=== PATIENT | female | born 1970 | race Caucasian/White ===

== ENCOUNTER 2018-05-28 06:05 | Inpatient (IN) | payer OTHER ==
[2018-05-28] MEDS ORDERED: TERBUTALINE 1 MG/ML VIAL SQ PRN (06:24)
[2018-05-28] MEDS ORDERED: METHYLERGONOVINE 0.2 MG/ML 1 ML AMP IM PRN (06:24)
[2018-05-28] MEDS ORDERED: LIDOCAINE 0.5% (PF) 5 MG/ML (50 ML SDV) SQ PRN (06:24)
[2018-05-28] MEDS ORDERED: PENICILLIN G POTASSIUM 5,000,000 UNIT in DEXTROSE 5% IN WATER 100 ML IVPB STA ×2 (06:24)
[2018-05-28] MEDS ORDERED: CARBOPROST TROMETHAMINE 250 MCG/ML 1 ML AMP IM PRN (06:24)
[2018-05-28] MEDS ORDERED: OXYTOCIN 10 UNIT/ML 1 ML VIAL IM PRN (06:24)
[2018-05-28] MEDS ORDERED: LACTATED RINGERS 1,000 ML IV SCH (06:30)
[2018-05-28] MEDS: LACTATED RINGERS 1,000 ML IV SCH (06:32)
[2018-05-28 06:44] LABS: Basophils % (A) 0 %; Eosinophils # (A) 0.1 k/uL (0-0.7); Eosinophils % (A) 1 %; HCT 38.7 % (34.0-46.0); HGB 12.1 gm/dL (11.4-16.0); Lymphocytes # (A) 1.8 k/uL (1.0-4.8); Lymphocytes % (A) 19 %; MCH 29.2 pg (25.0-35.0); MCHC 31.4 g/dL (31.0-37.0); Mean Platelet Volume 7.5; Monocytes # (A) 0.4 k/uL (0-1.0); Monocytes % (A) 4 %; Neutrophils # (A) 7.3 k/uL (1.3-7.7); Neutrophils % (A) 75 %; Platelet Count 263 k/uL (150-450); RBC 4.15 m/uL (3.80-5.40); RDW 13.9 % (11.5-15.5); WBC 9.8 k/uL (3.8-10.6)
--- NOTE | 2018-05-28 07:20 | P.HPOB ---
History of Present Illness H&P Date: 05/28/18 Chief Complaint: Patient presents with strong regular uterine contractions This is a 47-year-old white female 2 para 0010 EDC 05/31/2018 at 39-4/7 weeks' gestation. Patient presented in spontaneous labor, contractions started at home at 0300 hrs. Upon presentation to triage she was completely dilated. She denied fluid leakage or vaginal bleeding. Past medical history is significant for diabetes, history of blood clot in the left leg postsurgical 2007. Past surgical history D&C 2016, gastric bypass surgery 2017, excess skin removal of the abdomen size and arms 2009, hysteroscopy 2, wisdom teeth extracted. Current medications baby aspirin daily, heparin 75,000 units twice daily, last received at 10 AM yesterday morning. ALLERGIES none known. Family history significant for hypertension and diabetes. Social history patient is a former tobacco smoker, she is , she denies alcohol or drug use. Obstetric history is significant for blood type A positive, rubella status immune. VDRL testing, hepatitis B surface antigen, HIV testing, gonorrhea and chlamydia cultures, all positive. This is significant for twin in the first trimester with 1 demise. One-hour Glucola 67. Repeat 74. Positive group B strep cultures. On exam this is a white female who is 5 foot 4 inches, 240 pounds, blood pressure 131/80 on admission. Gen. physical exam reveals 3+ lower extremity edema, normal reflexes. Cervix is dilated to 10 on admission, bulging membranes , vertex presentation. Artificial amniorrhexis reveals clear fluid. Station + 1. heart rate consistent with reactive NST. Impression: 39-4/7 weeks intrauterine , advanced maternal age, history of blood clot on heparin, positive group B strep cultures. Plan: Continue close maternal and surveillance. Anticipate normal spontaneous vaginal delivery. Review of Systems Constitutional: Reports as per HPI Past Medical History Past Medical History: Deep Vein Thrombosis (DVT) History of Any Multi-Drug Resistant Organisms: None Reported Past Surgical History: Bariatric Surgery Additional Past Surgical History / Comment(s): skin removal Past Psychological History: No Psychological Hx Reported Smoking Status: Former smoker Past Alcohol Use History: None Reported Past Drug Use History: None Reported Medications and Allergies Home Medications Medication Instructions Recorded Confirmed Type Aspirin 162 mg PO DAILY 11/29/17 05/28/18 History Calcium Carbonate/Vitamin D3 1 tab PO DAILY 11/29/17 05/28/18 History [Calcium 600-Vit D3 400 Caplet] Cephalexin [Keflex] 500 mg PO Q6HR #28 cap 11/29/17 05/28/18 Rx Cholecalciferol (Vitamin D3) 2,000 unit PO DAILY 11/29/17 05/28/18 History [Vitamin D3] Enoxaparin Sodium 40 mg SQ DAILY 11/29/17 05/28/18 History Ferrous Sulfate [Feosol] 325 mg PO DAILY 11/29/17 05/28/18 History Multivitamins, Thera [Multivitamin 2 tab PO DAILY 11/29/17 05/28/18 History (formulary)] Phytonadione [Vitamin K] 5 mg PO DAILY 11/29/17 05/28/18 History Mmb-Qhpb-Efuca Acid 1 cap PO DAILY 11/29/17 05/28/18 History [-U Capsule (formulary)] Vitamin A 8,000 unit PO DAILY 11/29/17 05/28/18 History Vitamin E 1,000 unit PO DAILY 11/29/17 05/28/18 History Allergies Allergy/AdvReac Type Severity Reaction Status Date / Time No Known Allergies Allergy Verified 05/28/18 06:23 Exam Intake and Output 05/27/18 05/28/18 05/28/18 22:59 06:59 14:59 Other: Weight 108.862 kg C exam under HPI please Results Result Diagrams: 05/28/18 06:34 Assessment and Plan Assessment: Active labor at 39-4/7 weeks' gestation Plan: Anticipate normal spontaneous vaginal delivery. Penicillin G administered. Time with Patient: Less than 30
--- NOTE | 2018-05-28 07:22 | P.PROBDLV ---
Vaginal Delivery Note - . Vaginal Delivery Note: This is a 47-year-old white female 2 para 0010 EDC 06/10/2018 at 39-4/7 weeks' gestation. Patient presented in active spontaneous labor. Patient has been on heparin 75,000 units twice a day, last received at 10 AM yesterday morning. She denied fluid leakage or vaginal bleeding. Please see dictated history and physical for details. Penicillin G was given 1. Artificial amniorrhexis revealed clear fluid. Internal scalp lead was applied. Patient had a difficult time with the second stage, writhing, unable to maintain proper position or focus. However, perineal body was prepped and draped and ultimately the 's head delivered occiput anterior. Infant restituted accordingly. There was no nuchal cord. Patient was officially delivered of a liveborn female infant at 0658 hours. Umbilical cord was doubly clamped and ligated, she was handed to waiting nurses for evaluation where scores of 9 and 9 at one and 5 minutes respectively were given. Placenta delivered spontaneously, it was inspected and noted to be small, otherwise intact with trivascular cord. There is terminal meconium. Placenta is sent to pathology. The uterus is then massaged. Inspection of the cervix, vagina, perineum, and periurethral areas revealed a small first-degree perineal laceration on the right labia, and the second on the left labia. Both were injected with lidocaine and repaired with a single wvvhfu-[id number]-ogmpn suture of 3-0 Vicryl. Total estimated blood loss 400 mL's. IV is positional and therefore Methergine was given IM 1 with good results. Total estimated blood loss 400 mL's. weighed 2910 g or 6 pounds 6.6 ounces. Patient and her are allowed to begin the bonding expense in the LDR.
[2018-05-28 07:47] VITALS: BMI 41.1
[2018-05-28 07:50] LABS: Partial Thromboplastin Time 22.7 sec (22.0-30.0); Prothrombin Time 9.6 sec (9.0-12.0)
[2018-05-28] MEDS ORDERED: ACETAMINOPHEN IV (For NPO) 1,000 MG in EMPTY BAG 1 BAG IVPB STA (08:11)
[2018-05-28] MEDS ORDERED: PENICILLIN G POTASSIUM 2,500,000 UNIT in DEXTROSE 5% IN WATER 100 ML IVPB SCH ×2 (10:25)
[2018-05-28] MEDS ORDERED: SIMETHICONE 80 MG CHEWABLE PO PRN (13:21)
[2018-05-28] MEDS ORDERED: LANOLIN CREAM 5 GM TUBE TOPICAL PRN (13:21)
[2018-05-28] MEDS ORDERED: WITCH HAZEL 1 EACH MED..PAD TOPICAL PRN (13:21)
[2018-05-28] MEDS ORDERED: BENZOCAINE/MENTHOL SPRAY 1 GM/SPRAY AEROSOL TOPICAL PRN (13:21)
[2018-05-28] MEDS ORDERED: diphenhydrAMINE 25 MG CAP PO PRN (13:21)
[2018-05-28] MEDS ORDERED: ZOLPIDEM 5 MG TAB PO PRN (13:21)
[2018-05-28] MEDS ORDERED: IBUPROFEN 600 MG TAB PO PRN (13:21)
[2018-05-28] MEDS ORDERED: diphenhydrAMINE 50 MG/ML 1 ML VIAL IVP PRN ×2 (13:21)
[2018-05-28] MEDS ORDERED: diphenhydrAMINE 50 MG CAP PO PRN (13:21)
[2018-05-28] MEDS ORDERED: HYDROCORTISONE 2.5% RECTAL CREAM 30 GM TUBE RECTAL PRN (13:21)
[2018-05-28] MEDS ORDERED: OXYTOCIN 20 UNITS/1000 ML NS 1,000 ML IV SCH (13:30)
[2018-05-28] MEDS: ENOXAPARIN 40 MG/0.4 ML SYRINGE SQ SCH (16:12)
[2018-05-28 16:44] VITALS: RESP 16
[2018-05-28] MEDS: ACETAMINOPHEN TAB 325 MG TAB PO PRN ×2 (16:53→21:34)
[2018-05-28] MEDS: SENNOSIDES-DOCUSATE SODIUM 1 EACH TAB PO SCH (21:34)
--- NOTE | 2018-05-29 07:37 | P.PN ---
Subjective Progress Note Date: 05/29/18 Principal diagnosis: day #1 Slept well. Diuresing well. No complaints of pain. Minimal to moderate lochia rubra, no large clots. Objective - Vital Signs Vital signs: Vital Signs Temp 98.1 F 05/29/18 00:00 Pulse 61 05/29/18 00:00 Resp 16 05/29/18 00:00 BP 95/50 05/29/18 00:00 Pulse Ox 98 05/28/18 16:00 Intake & Output 05/28/18 05/29/18 05/29/18 18:59 06:59 18:59 Intake Total 50 Balance 50 Intake: Oral 50 Other: # Voids 1 1 - Constitutional General appearance: Present: average body habitus, morbidly obese - EENT Eyes: Present: PERRLA ENT: Present: hearing grossly normal - Neck Neck: Present: normal ROM - Respiratory Respiratory: bilateral: CTA - Cardiovascular Rhythm: regular - Gastrointestinal General gastrointestinal: Present: normal bowel sounds - Genitourinary Genitourinary Comment(s): Fundus firm, midline, below the umbilicus, symmetric and nontender. - Integumentary Integumentary Comment(s): 2-3+ peripheral edema, improved over yesterday. No calf tenderness. Integumentary: Present: normal - Neurologic Neurologic: Present: CNII-XII intact - Labs CBC & Chem 7: 05/28/18 06:34 Assessment and Plan Assessment: day #1, doing well. Diuresing nicely. Plan: Continue care today, as needs an additional 24 hours for history of positive group B strep cultures. Continue care. Likely discharge home tomorrow. Time with Patient: Less than 30
[2018-05-29 08:37] LABS: Basophils % (A) 0 %; Eosinophils # (A) 0.1 k/uL (0-0.7); Eosinophils % (A) 1 %; HCT 31.3 % (34.0-46.0); HGB 10.2 gm/dL (11.4-16.0); Hypochromasia Slight; Lymphocytes # (A) 1.4 k/uL (1.0-4.8); Lymphocytes % (A) 14 %; MCH 31.3 pg (25.0-35.0); MCHC 32.6 g/dL (31.0-37.0); MCV 95.9 fL (80.0-100.0); Mean Platelet Volume 8.1; Monocytes # (A) 0.4 k/uL (0-1.0); Monocytes % (A) 5 %; Neutrophils # (A) 7.8 k/uL (1.3-7.7); Neutrophils % (A) 80 %; Platelet Count 208 k/uL (150-450); RBC 3.27 m/uL (3.80-5.40); RDW 14.1 % (11.5-15.5); WBC 9.8 k/uL (3.8-10.6)
[2018-05-29] MEDS: SENNOSIDES-DOCUSATE SODIUM 1 EACH TAB PO SCH ×2 (09:17→19:37)
[2018-05-29] MEDS: LACTATED RINGERS 1,000 ML IV SCH (09:17)
[2018-05-29] MEDS: ENOXAPARIN 40 MG/0.4 ML SYRINGE SQ SCH (10:16)
[2018-05-29] MEDS: ACETAMINOPHEN TAB 325 MG TAB PO PRN (19:37)
--- NOTE | 2018-05-30 08:11 | P.DS ---
Providers Date of admission: 05/28/18 06:05 Expected date of discharge: 05/30/18 Attending physician: Rahel Ardon Primary care physician: Tye Felder DO Hospital Course: This is a 47-year-old white female 2 para 0010 EDC 06/10/2018 at 39-4/7 weeks' gestation. Patient was scheduled for induction, however presented in active labor. Her is remarkable for advanced maternal age, positive group B strep cultures, history of blood clot in the past, on heparin twice daily. She is being co-managed with high risk. Cerclage was placed earlier in the , and has been removed. Please see my dictated history and physical for details. Patient went on to quickly deliver a liveborn female infant with scores of 9 and 9 at one and 5 minutes respectively. weighed 6 lbs. 6 oz. or 2910 g. Estimated blood loss of 400 mL, with additional 200 mL of clot passed after delivery. There was a small first-degree perineal laceration on both of the labia minora, both repaired with single [id number] sutures. Please see dictated delivery note for details. The patient has been transitioned back to Lovenox 40 mg daily. This morning she is doing well, she is voiding, ambulating and passing flatus without difficulty. Extremities reveal 2+ edema, reflexes are normal. Fundus is firm and in the midline, symmetric and 18 week size. Extremities are negative. Breasts are not engorged. Breast-feeding is going well. She has requested and I have written for her prescription for a double electric breast pump. Patient will follow-up with me in the office in 6 weeks. She will use over-the- counter Tylenol if needed for pain. I have reminded her no intercourse, tampons or douching. She will continue the Lovenox 40 mg daily. She will call with any fevers shakes or chills, foul smelling or copious lochia, with the passage of large blood clots, with any pain not alleviated by over the counter products, with any issues of redness tenderness or enlargement of the lower extremities, or indeed with any concerns. Patient Condition at Discharge: Good Plan - Discharge Summary Discharge Rx Participant: No New Discharge Prescriptions: No Action Vitamin E 1,000 unit PO DAILY Vitamin A 8,000 unit PO DAILY Phytonadione [Vitamin K] 5 mg PO DAILY Ferrous Sulfate [Feosol] 325 mg PO DAILY Calcium Carbonate/Vitamin D3 [Calcium 600-Vit D3 400 Caplet] 1 tab PO DAILY Ddp-Ucje-Mqbxc Acid [-U Capsule (formulary)] 1 cap PO DAILY Multivitamins, Thera [Multivitamin (formulary)] 2 tab PO DAILY Enoxaparin Sodium 40 mg SQ DAILY Aspirin 162 mg PO DAILY Cholecalciferol (Vitamin D3) [Vitamin D3] 2,000 unit PO DAILY Cephalexin [Keflex] 500 mg PO Q6HR #28 cap Discharge Medication List Aspirin 162 mg PO DAILY 11/29/17 [History] Calcium Carbonate/Vitamin D3 [Calcium 600-Vit D3 400 Caplet] 1 tab PO DAILY 05/09 [History] Cephalexin [Keflex] 500 mg PO Q6HR #28 cap 11/29/17 [Rx] Cholecalciferol (Vitamin D3) [Vitamin D3] 2,000 unit PO DAILY 11/29/17 [History] Enoxaparin Sodium 40 mg SQ DAILY 11/29/17 [History] Ferrous Sulfate [Feosol] 325 mg PO DAILY 11/29/17 [History] Multivitamins, Thera [Multivitamin (formulary)] 2 tab PO DAILY 11/29/17 [History ] Phytonadione [Vitamin K] 5 mg PO DAILY 11/29/17 [History] Bbs-Sgig-Fswtt Acid [-U Capsule (formulary)] 1 cap PO DAILY 05/09 [History] Vitamin A 8,000 unit PO DAILY 11/29/17 [History] Vitamin E 1,000 unit PO DAILY 11/29/17 [History] Follow up Appointment(s)/Referral(s): Rahel Ardon MD [STAFF PHYSICIAN] - 6 Weeks Discharge Disposition: HOME SELF-CARE
[2018-05-30] MEDS: SENNOSIDES-DOCUSATE SODIUM 1 EACH TAB PO SCH (09:01)
[2018-05-30] MEDS: ENOXAPARIN 40 MG/0.4 ML SYRINGE SQ SCH (09:01)
[2018-05-30 10:26] VITALS: BP 107/70; PULSE 56; TEMP 98
== END 2018-05-30 12:25 | disposition home or self-care (01) | DRG 807 ==
LOC: 4FBP 06:05
PROVIDERS: ADMIT Obstetrics & Gynecology; ATTEND Obstetrics & Gynecology
PROC: 10E0XZZ Delivery of Products of Conception, External Approach (ICD-10-PCS; principal; 2018-05-28)
PROC: 0KQM0ZZ Repair Perineum Muscle, Open Approach (ICD-10-PCS; 2018-05-28)
PROC: 0HQ9XZZ Repair Perineum Skin, External Approach (ICD-10-PCS; 2018-05-28)
DX: O77.0 Labor and delivery complicated by meconium in amniotic fluid (principal); O99.844 Bariatric surgery status complicating childbirth; O70.0 First degree perineal laceration during delivery; O70.1 Second degree perineal laceration during delivery; O99.824 Streptococcus B carrier state complicating childbirth; Z37.0 Single live birth; Z3A.39 39 weeks gestation of pregnancy; Z79.82 Long term (current) use of aspirin; Z79.899 Other long term (current) drug therapy; Z87.891 Personal history of nicotine dependence; Z86.39 Personal history of other endocrine, nutritional and metabolic disease; Z86.718 Personal history of other venous thrombosis and embolism; Z82.49 Family history of ischemic heart disease and other diseases of the circulatory system; Z83.3 Family history of diabetes mellitus
CPT/HCPCS: 85025; 85610; 85730; 86850; 86900; 86901; 88307

== ENCOUNTER 2019-08-16 23:01 | Emergency (ER) | payer OTHER ==
--- NOTE | 2019-08-17 00:05 | US ---
EXAMINATION TYPE: US venous doppler duplex LE LT DATE OF EXAM: 08/16/2019 11:54 PM COMPARISON: NONE CLINICAL HISTORY: Leg pain/swelling recent procedure. Pain and swelling. SIDE PERFORMED: Left TECHNIQUE: The lower extremity deep venous system is examined utilizing real time linear array sonog kae with graded compression, doppler sonography and color-flow sonography. VESSELS IMAGED: External Iliac Vein (EIV) Common Femoral Vein Deep Femoral Vein Greater Saphenous Vein * Femoral Vein Popliteal Vein Small Saphenous Vein * Proximal Calf Veins (* superficial vessels) Left Leg: Negative for DVT IMPRESSION: No evidence of deep venous thrombosis in the left leg.
--- NOTE | 2019-08-17 00:18 | ED ---
Extremity Problem HPI - General Chief complaint: Extremity Problem,Nontraumatic Stated complaint: left leg pain Time Seen by Provider: 08/16/19 23:19 Source: patient, family Mode of arrival: ambulatory Limitations: no limitations - History of Present Illness Initial comments: 48-year-old female patient presents to the emergency department today for evalu ation of swelling and tenderness to her left calf. Patient recently had a venous ablation and was told that she may develop DVT as a complication. Patient states the last 2 days she has been having an area of pain and swelling to the left proximal medial calf. She denies any numbness or tingling to the leg. Denies fever or chills. Denies any known injury. She denies use of any anticoagulants or antiplatelet medications. She does have history of DVT about 10 years ago after a cosmetic surgery to her leg. - Related Data Home Medications Medication Instructions Recorded Confirmed Aspirin 162 mg PO DAILY 11/29/17 05/28/18 Calcium Carbonate/Vitamin D3 1 tab PO DAILY 11/29/17 05/28/18 [Calcium 600-Vit D3 400 Caplet] Cholecalciferol (Vitamin D3) 2,000 unit PO DAILY 11/29/17 05/28/18 [Vitamin D3] Enoxaparin Sodium 40 mg SQ DAILY 11/29/17 05/28/18 Ferrous Sulfate [Feosol] 325 mg PO DAILY 11/29/17 05/28/18 Multivitamins, Thera [Multivitamin 2 tab PO DAILY 11/29/17 05/28/18 (formulary)] Phytonadione [Vitamin K] 5 mg PO DAILY 11/29/17 05/28/18 Csv-Qbcn-Fnxzm Acid 1 cap PO DAILY 11/29/17 05/28/18 [-U Capsule (formulary)] Vitamin A 8,000 unit PO DAILY 11/29/17 05/28/18 Vitamin E 1,000 unit PO DAILY 11/29/17 05/28/18 Previous Rx's Medication Instructions Recorded Cephalexin [Keflex] 500 mg PO Q6HR #28 cap 11/29/17 Allergies Allergy/AdvReac Type Severity Reaction Status Date / Time No Known Allergies Allergy Verified 08/16/19 23:15 Review of Systems ROS Statement: Those systems with pertinent positive or pertinent negative responses have been documented in the HPI. ROS Other: All systems not noted in ROS Statement are negative. Past Medical History Past Medical History: Deep Vein Thrombosis (DVT) History of Any Multi-Drug Resistant Organisms: None Reported Past Surgical History: Bariatric Surgery Additional Past Surgical History / Comment(s): skin removal, metro veinn thermal ablasion Past Anesthesia/Blood Transfusion Reactions: No Reported Reaction Past Psychological History: No Psychological Hx Reported Smoking Status: Former smoker Past Alcohol Use History: None Reported Past Drug Use History: None Reported - Past Family History Mother Family Medical History: Unable to Obtain General Exam Limitations: no limitations General appearance: alert, in no apparent distress, other (This is a well- developed, well-nourished adult female patient in no acute distress. Vital signs upon presentation are temperature 98.1F, pulse 60, respirations 20, blood pressure 142/85, pulse ox 99% on room air.) Respiratory exam: Present: normal lung sounds bilaterally. Absent: respiratory distress, wheezes, rales, rhonchi, stridor Cardiovascular Exam: Present: regular rate, normal rhythm, normal heart sounds. Absent: systolic murmur, diastolic murmur, rubs, gallop, clicks Extremities exam: Present: full ROM, tenderness (Left medial proximal calf.), normal capillary refill, other (Skin to the lower extremities is pink, warm, dry. Cap refills less than 3 seconds.). Absent: pedal edema, joint swelling, calf tenderness Neurological exam: Present: alert, oriented X3, CN II-XII intact Psychiatric exam: Present: normal affect, normal mood Skin exam: Present: warm, dry, intact, normal color. Absent: rash Course Vital Signs 08/16/19 08/17/19 23:11 00:24 Temperature 98.1 F 98 F Pulse Rate 60 75 Respiratory 20 18 Rate Blood Pressure 142/85 138/81 O2 Sat by Pulse 99 100 Oximetry Medical Decision Making - Medical Decision Making 48-year-old female patient presented to the emergency department today for evaluation of left calf pain and tenderness. Physical examination reveals generalized swelling to the lower extremities. Ultrasound was obtained rule out DVT, no evidence for DVT was noted. Did discuss findings results with the patient. She is instructed follow with her primary care physician for recheck in 1-2 days. She is instructed to repeat ultrasound performed of symptoms persist. Return parameters were discussed in detail. She verbalizes understanding and agrees with this plan. - Radiology Data Radiology results: report reviewed No evidence for DVT Disposition Clinical Impression: Leg pain Disposition: HOME SELF-CARE Condition: Good Instructions (If sedation given, give patient instructions): Leg Pain (ED) Additional Instructions: Rest, elevate the leg. Follow-up with primary care physician for recheck in 1-2 days. Return to the emergency department immediately for any new, worsening, or concerning symptoms. Is patient prescribed a controlled substance at d/c from ED?: No Referrals: None,Stated [Primary Care Provider] - 1-2 days Time of Disposition: 00:18
[2019-08-17 00:29] VITALS: BP 138/81; PULSE 75; RESP 18; TEMP 98
== END 2019-08-17 00:24 | disposition home or self-care (01) ==
LOC: EC 23:01
DX: M79.662 Pain in left lower leg (principal); M79.89 Other specified soft tissue disorders; Z87.891 Personal history of nicotine dependence; Z79.82 Long term (current) use of aspirin; Z86.718 Personal history of other venous thrombosis and embolism; Z98.890 Other specified postprocedural states
CPT/HCPCS: 99283

== ENCOUNTER → 2019-09-02 | Outpatient (CLI) | payer OTHER ==
[2019-09-03 00:16] LABS: Luteinizing Hormone 24.1 mIU/mL
[2019-09-03 00:17] LABS: Follicle Stimulating Hormone 23.1 mIU/mL
[2019-09-03 00:20] LABS: HCG,Quantitative Serum <2.0 mIU/mL
== END | disposition home or self-care (01) ==
LOC: LABWHC1 16:02
PROVIDERS: ATTEND Obstetrics & Gynecology Reproductive Endocrinology
DX: N97.9 Female infertility, unspecified (principal)
CPT/HCPCS: 36415; 82672; 83001; 83002; 84144; 84702

== ENCOUNTER → 2019-10-09 | Outpatient (CLI) | payer OTHER ==
--- NOTE | 2019-10-09 10:05 | MM ---
Reason for exam: screening (asymptomatic). Last mammogram was performed 2 years and 10 months ago. History: Patient had first child at age 48. Family history of breast cancer in mother and breast cancer in maternal grandmother. Taking other hormone. Physical Findings: A clinical breast exam by your physician is recommended on an annual basis and results should be correlated with mammographic findings. MG 3D Screening Mammo W/Cad Bilateral CC, MLO, and XCCL view(s) were taken. Prior study comparison: December 12, 2016, mammogram. October 14, 2014, mammogram. The breast tissue is heterogeneously dense. This may lower the sensitivity of mammography. There are benign appearing round calcifications bilaterally. There is chronic nodularity bilaterally, axilla benign lymph nodes. There is no new dominant lesion. ASSESSMENT: Benign, BI-RAD 2 RECOMMENDATION: Routine screening mammogram of both breasts in 1 year.
== END | disposition home or self-care (01) ==
LOC: RADMAMWWP 07:27
PROVIDERS: ATTEND Obstetrics & Gynecology
DX: Z12.31 Encounter for screening mammogram for malignant neoplasm of breast (principal); Z80.3 Family history of malignant neoplasm of breast
CPT/HCPCS: 77063; 77067

== ENCOUNTER → 2019-11-21 | Outpatient (CLI) | payer OTHER ==
--- NOTE | 2019-11-22 11:35 | ECHOF ---
Referral Reason:R00.1 bradycardia, unspecified MEASUREMENTS -------- HEIGHT: 162.6 cm WEIGHT: 98.4 kg BP: 120/80 RVIDd: 3.3 cm (< 3.3) IVSd: 1.2 cm (0.6 - 1.1) LVIDd: 4.6 cm (3.9 - 5.3) LVPWd: 1.1 cm (0.6 - 1.1) IVSs: 1.7 cm LVIDs: 3.1 cm LVPWs: 2.0 cm LA Diam: 3.7 cm (2.7 - 3.8) LAESV Index (A-L): 25.21 ml/m Ao Diam: 3.3 cm (2.0 - 3.7) AV Cusp: 2.5 cm (1.5 - 2.6) MV EXCURSION: 12.495 mm (> 18.000) MV EF SLOPE: 74 mm/s (70 - 150) EPSS: 0.8 cm MV E Oscar: 1.05 m/s MV DecT: 224 ms MV A Oscar: 0.74 m/s MV E/A Ratio: 1.43 RAP: 5.00 mmHg RVSP: 21.00 mmHg FINDINGS -------- Sinus rhythm. This was a technically adequate study. The left ventricular size is normal. There is borderline concentric left ventricular hypertrophy. Overall left ventricular systolic function is normal with, an EF between 60 - 65 %. The right ventricle is mildly enlarged. Normal LA size by volume 22+/-6 ml/m2. The right atrium is normal in size. Interatrial and interventricular septum intact. The aortic valve is trileaflet and appears structurally normal. The mitral valve is normal. Mild tricuspid regurgitation present. Right ventricular systolic pressure is normal at < 35 mmHg. There is no pulmonic regurgitation present. The aortic root size is normal. IVC Not well visulized. There is no pericardial effusion. CONCLUSIONS -------- 1. Sinus rhythm. 2. This was a technically adequate study. 3. The left ventricular size is normal. 4. There is borderline concentric left ventricular hypertrophy. 5. Overall left ventricular systolic function is normal with, an EF between 60 - 65 %. 6. The right ventricle is mildly enlarged. 7. Normal LA size by volume 22+/-6 ml/m2. 8. The right atrium is normal in size. 9. Interatrial and interventricular septum intact. 10. The aortic valve is trileaflet and appears structurally normal. 11. The mitral valve is normal. 12. Mild tricuspid regurgitation present. 13. Right ventricular systolic pressure is normal at < 35 mmHg. 14. There is no pulmonic regurgitation present. 15. The aortic root size is normal. 16. IVC Not well visulized. 17. There is no pericardial effusion. CYBER OPERATOR: Greta Willoughby RDCS
== END | disposition home or self-care (01) ==
LOC: RADECHMAIN 11:19
PROVIDERS: ATTEND Family Medicine
DX: I07.1 Rheumatic tricuspid insufficiency (principal)
CPT/HCPCS: 93306

== ENCOUNTER → 2020-02-03 | Outpatient (CLI) | payer OTHER ==
[2020-02-03 14:11] LABS: Anisocytosis Slight; HCT 37.3 % (34.0-46.0); HGB 11.5 gm/dL (11.4-16.0); Hypochromasia Slight; MCH 26.5 pg (25.0-35.0); MCHC 30.8 g/dL (31.0-37.0); MCV 86.1 fL (80.0-100.0); Platelet Count 226 k/uL (150-450); RBC 4.33 m/uL (3.80-5.40); RDW 16.6 % (11.5-15.5); WBC 7.1 k/uL (3.8-10.6)
[2020-02-03 20:39] LABS: HIV 2 AB Non-Reactive (Non-Reactive); HIV AB P24 Non-Reactive (Non-Reactive); HIV P24 AG Non-Reactive (Non-Reactive)
[2020-02-03 20:44] LABS: Hepatitis B Surface Antigen Non-Reactive (Non-Reactive)
== END | disposition home or self-care (01) ==
LOC: LABWHC1 12:17
PROVIDERS: ATTEND Obstetrics & Gynecology Maternal & Fetal Medicine
DX: Z33.1 Pregnant state, incidental (principal)
CPT/HCPCS: 36415; 82306; 82607; 85027; 86762; 86780; 86850; 86900; 86901; 87077; 87086; 87186; 87340; 87390

== ENCOUNTER 2020-08-16 06:55 | Inpatient (IN) | payer OTHER ==
[2020-08-16] MEDS ORDERED: OXYTOCIN 10 UNIT/ML 1 ML VIAL IM PRN (07:20)
[2020-08-16] MEDS ORDERED: CARBOPROST TROMETHAMINE 250 MCG/ML 1 ML AMP IM PRN (07:20)
[2020-08-16] MEDS ORDERED: LIDOCAINE 0.5% (PF) 5 MG/ML (50 ML SDV) SQ PRN (07:20)
[2020-08-16] MEDS ORDERED: PENICILLIN G POTASSIUM 5,000,000 UNIT in DEXTROSE 5% IN WATER 100 ML IVPB STA ×2 (07:20)
[2020-08-16] MEDS ORDERED: METHYLERGONOVINE 0.2 MG/ML 1 ML AMP IM PRN (07:20)
[2020-08-16] MEDS ORDERED: TERBUTALINE 1 MG/ML VIAL SQ PRN (07:20)
[2020-08-16] MEDS ORDERED: OXYTOCIN 30 UNITS/500 ML NS 30 UNIT in SALINE 1 500ML.BAG IV SCH (07:30)
[2020-08-16] MEDS: LACTATED RINGERS 1,000 ML IV SCH ×2 (07:40→08:13)
[2020-08-16 07:45] LABS: Basophils % (A) 0 %; Eosinophils % (A) 0 %; HCT 32.9 % (34.0-46.0); HGB 10.5 gm/dL (11.4-16.0); Hypochromasia Moderate; Lymphocytes % (A) 20 %; MCH 28.5 pg (25.0-35.0); Mean Platelet Volume 8.3; Monocytes # (A) 0.5 k/uL (0-1.0); Monocytes % (A) 5 %; Neutrophils # (A) 7.3 k/uL (1.3-7.7); Neutrophils % (A) 73 %; Platelet Count 235 k/uL (150-450); RDW 14.5 % (11.5-15.5)
[2020-08-16 07:47] VITALS: RESP 16
[2020-08-16] MEDS ORDERED: ROPIVACAINE 5MG/ML 20ML VIAL ONE (08:19)
[2020-08-16] MEDS ORDERED: fentaNYL (PF) 50 MCG/ML 5 ML AMP ONE (08:19)
[2020-08-16] MEDS ORDERED: SODIUM CHLORIDE 0.9% 100 ML BAG ONE (08:19)
--- NOTE | 2020-08-16 08:31 | P.HPOB ---
History of Present Illness H&P Date: 08/16/20 Chief Complaint: Strong regular uterine contractions This is a 49-year-old female 3 para 2001 EDC 09/03/2020 at 37-2/7 weeks' gestation who presented with strong regular uterine contractions from home. is remarkable for egg donor, history of cerclage removed 10 days ago. Co-managed with Dr. Mosqueda, maternal- medicine at [facility]. Past medical history is significant for obesity, deep venous thrombosis 2007, advanced maternal age, egg donor . Past surgical history bariatric surgery 2007, D&C 2016, removal of excess skin 2009, hysteroscopy 2, wisdom teeth extracted. Family history significant for hypertension, diabetes, postmenopausal breast cancer in patient's mother. Current medications Lovenox 40 mg subcutaneously daily, vitamin daily. Social history patient is a former smoker, she is , she is currently staying at home. She denies alcohol or drug use. ALLERGIES include latex to which reports a rash. history blood type is A+, rubella status immune. Group B strep cultures, HIV testing, gonorrhea and chlamydia cultures all negative. Three- hour GTT elevated consistent with gestational diabetes. Patient had a cerclage placed, removed [address] Pasquale Mosqueda at [facility]. On exam patient is 5 foot 5 inches, 216 pounds, blood pressure 119/73, pulse 68, respirations 16, temperature 97.1. The general physical exam is within normal limits. The abdomen reveals multiple incisions secondary to skin removal and abdominoplasty. Extremities reveal no edema. Cervix is 8 cm dilated, 90% effaced, -2 station, vertex presentation. Artificial amniorrhexis reveals clear fluid. heart rate is consistent with reactive NST, baseline 130s. Uterine contractions occurring every 4 minutes apart. Impression: 37-2/7 weeks intrauterine , active labor. History of DVT in the past, changed to heparin last week but prescription not filled by the patient. Otherwise all signs reassuring. Plan: Epidural has been requested and anesthesia team is here. Continue close maternal and surveillance. Anticipate normal spontaneous vaginal delivery. Elastic stockings bilaterally. Review of Systems Constitutional: Reports as per HPI Past Medical History Past Medical History: Deep Vein Thrombosis (DVT) Additional Past Medical History / Comment(s): Bariatric surgery, abdominoplasty. History of Any Multi-Drug Resistant Organisms: None Reported Past Surgical History: Bariatric Surgery Additional Past Surgical History / Comment(s): skin removal, metro vein thermal ablasion Past Anesthesia/Blood Transfusion Reactions: No Reported Reaction Smoking Status: Former smoker - Past Family History Mother Family Medical History: Unable to Obtain Medications and Allergies Home Medications Medication Instructions Recorded Confirmed Type Aspirin 162 mg PO DAILY 11/29/17 08/16/20 History Calcium Carbonate/Vitamin D3 3,000 mg PO DAILY 11/29/17 08/16/20 History [Calcium 600-Vit D3 400 Caplet] Cholecalciferol (Vitamin D3) 2,000 unit PO DAILY 11/29/17 08/16/20 History [Vitamin D3] Ferrous Sulfate [Feosol] 325 mg PO DAILY 11/29/17 08/16/20 History Multivitamins, Thera [Multivitamin 2 tab PO DAILY 11/29/17 08/16/20 History (formulary)] Htx-Fwjb-Zyeto Acid 1 cap PO DAILY 11/29/17 08/16/20 History [-U Capsule (formulary)] Vitamin A 8,000 unit PO DAILY 11/29/17 08/16/20 History Vitamin E 1,000 unit PO DAILY 11/29/17 08/16/20 History Omeprazole 20 mg PO DAILY 08/16/20 08/16/20 History Allergies Allergy/AdvReac Type Severity Reaction Status Date / Time latex AdvReac Rash/Hives Verified 08/16/20 07:11 Exam Vital Signs Temp Pulse Resp BP Pulse Ox 08/16/20 07:20 97.1 F L 58 L 16 112/62 98 08/16/20 07:19 97.1 F L 58 L 16 112/62 98 Intake and Output 08/15/20 08/16/20 08/16/20 22:59 06:59 14:59 Other: Weight 97.976 kg Results Result Diagrams: 08/16/20 07:32 Abnormal Lab Results - Last 24 Hours (Table) 08/16/20 Range/Units 07:32 RBC 3.70 L (3.80-5.40) m/uL Hgb 10.5 L (11.4-16.0) gm/dL Hct 32.9 L (34.0-46.0) % Assessment and Plan Assessment: 37-2/7 weeks intrauterine , active spontaneous labor. History of DVT, on Lovenox. Otherwise all signs reassuring. result of egg donor. Cold managed with Dr. Pasquale Mosqueda at [facility]. Plan: Continue close maternal and surveillance. Elastic stockings bilaterally. We'll reinstitute Lovenox after delivery. Epidural being placed per patient's request. Anticipate normal spontaneous vaginal delivery. Time with Patient: Less than 30
[2020-08-16] MEDS ORDERED: diphenhydrAMINE ELIXIR 25 MG/10 ML CUP PO PRN (11:42)
[2020-08-16] MEDS ORDERED: LANOLIN CREAM 5 GM TUBE TOPICAL PRN (11:42)
[2020-08-16] MEDS ORDERED: HYDROCORTISONE 2.5% RECTAL CREAM 30 GM TUBE RECTAL PRN (11:42)
[2020-08-16] MEDS ORDERED: diphenhydrAMINE 50 MG/ML 1 ML VIAL IVP PRN ×2 (11:42)
[2020-08-16] MEDS ORDERED: SIMETHICONE 80 MG CHEWABLE PO PRN (11:42)
[2020-08-16] MEDS ORDERED: BENZOCAINE/MENTHOL SPRAY 1 GM/SPRAY AEROSOL TOPICAL PRN (11:42)
[2020-08-16] MEDS ORDERED: diphenhydrAMINE 25 MG CAP PO PRN (11:42)
[2020-08-16] MEDS ORDERED: IBUPROFEN 600 MG TAB PO PRN (11:42)
[2020-08-16] MEDS ORDERED: diphenhydrAMINE 50 MG CAP PO PRN (11:42)
[2020-08-16] MEDS ORDERED: ZOLPIDEM 5 MG TAB PO PRN (11:42)
--- NOTE | 2020-08-16 11:42 | P.PROBDLV ---
Vaginal Delivery Note - . Vaginal Delivery Note: This is a 49-year-old white female 3 para 1011 EDC 09/03/20 at 37-2/7 weeks' gestation. Patient presented from home in early spontaneous labor. Cervical cerclage was removed last week. Her is also remarkable for history of DVT, on Lovenox 40 mg subcutaneously daily. Patient was to switch over to heparin at the end of last week, but failed to do so. Please see dictated history and physical for details. Artificial amniorrhexis revealed clear fluid. Epidural was placed per her request. She progressed well through the first stage of labor and became completely dilated at 1110 hours. Perineal body was prepped and draped in usual sterile fashion. With excellent maternal expulsive efforts the 's head delivered occiput anterior. Baby restituted accordingly. There was no nuchal cord noted. The right or anterior shoulder was gently delivered from underneath the pubic symphysis at which time the oropharynx, nasopharynx, and external nares were bulb suctioned on the perineal body. Patient was officially delivered of a liveborn male at 1128 hours. Umbilical cord was doubly clamped and ligated, he was handed to waiting nurses for evaluation where scores of 9 and 9 at one and 5 minutes respectively. The placenta delivered spontaneously, it was inspected and noted to be intact with trivascular cord at 1130 hours. The placenta is sent to pathology for evaluation. At this time careful inspection of the cervix, vagina, perineum, periurethral, and perirectal areas reveals no lacerations or defects. Total estimated blood loss 100 mL's. Fundus is firm and in the midline, symmetric and 18 week size upon completion of delivery. weighs 6 lbs. 2 oz. or 2790 g. The are requesting circumcision further son.
[2020-08-16] MEDS ORDERED: PENICILLIN G POTASSIUM 2,500,000 UNIT in DEXTROSE 5% IN WATER 100 ML IVPB SCH ×2 (12:00)
[2020-08-16] MEDS ORDERED: ONDANSETRON 4 MG/2 ML VIAL IVP PRN (14:12)
[2020-08-16] MEDS ORDERED: ENOXAPARIN 40 MG/0.4 ML SYRINGE SQ SCH (16:00)
[2020-08-16] MEDS: ACETAMINOPHEN TAB 325 MG TAB PO PRN (19:54)
[2020-08-16] MEDS ORDERED: SENNOSIDES-DOCUSATE SODIUM 1 EACH TAB PO SCH (20:00)
[2020-08-17] MEDS: ACETAMINOPHEN TAB 325 MG TAB PO PRN (03:15)
--- NOTE | 2020-08-17 07:34 | P.DS ---
Providers Date of admission: 08/16/20 07:18 Expected date of discharge: 08/17/20 Attending physician: Rahel Ardon Primary care physician: Stated None Hospital Course: This is a 49-year-old female 3 para 1011 EDC 09/03/2020 at 37-2/7 weeks' gestation who presented with spontaneous from home. is remarkable for donor egg, previous cerclage removed 10 days ago, advanced maternal age, and on Lovenox for DVT history. [place] strep cultures negative, rubella status immune, blood type A+. Please see dictated history and physical for details. Patient was admitted, artificial amniorrhexis revealed clear fluid. Epidural b olus placed per her request. She went on to deliver vaginally a liveborn male infant with scores of 9 and 9 at one and 5 minutes respectively. He weighed 27 90 g, or 6 lbs. 2 oz. There were no lacerations noted, estimated blood loss 100 mL's. Please see dictated delivery note for details. This morning the patient is doing well. She has restarted her Lovenox 40 mg daily. She is voiding, ambulate in, passing flatus without difficulty. Lochia rubra is minimal. Fundus is firm and in the midline, symmetric and 18 week size. Breasts are not engorged. [place] infant is doing well and circumcision has been performed. Patient is judged to be in very good condition for discharge home. She will follow-up with me in the office in 6 weeks. I have reminded her no intercourse, tampons or douching. She will use extra strength Tylenol or [id number] Aleve Advil or Motrin as needed for pain. She will call with any fevers shakes or chills, foul smelling or copious lochia, with the passage of large blood clots, with any pain not alleviated by [id number] products, or indeed with any concerns. Assessment: Doing Well day #1 Patient Condition at Discharge: Good Plan - Discharge Summary Discharge Rx Participant: No New Discharge Prescriptions: No Action Vitamin E 1,000 unit PO DAILY Vitamin A 8,000 unit PO DAILY Ferrous Sulfate [Feosol] 325 mg PO DAILY Calcium Carbonate/Vitamin D3 [Calcium 600-Vit D3 400 Caplet] 3,000 mg PO PARVIN Y [id number] Acid [-U Capsule (formulary)] 1 cap PO DAILY Multivitamins, Thera [Multivitamin (formulary)] 2 tab PO DAILY Aspirin 162 mg PO DAILY Cholecalciferol (Vitamin D3) [Vitamin D3] 2,000 unit PO DAILY Omeprazole 20 mg PO DAILY Discharge Medication List Aspirin 162 mg PO DAILY 11/29/17 [History] Calcium Carbonate/Vitamin D3 [Calcium 600-Vit D3 400 Caplet] 3,000 mg PO DAILY 11/29/17 [History] Cholecalciferol (Vitamin D3) [Vitamin D3] 2,000 unit PO DAILY 11/29/17 [History] Ferrous Sulfate [Feosol] 325 mg PO DAILY 11/29/17 [History] Multivitamins, Thera [Multivitamin (formulary)] 2 tab PO DAILY 11/29/17 [History] Ulx-Wrkg-Jvemp Acid [-U Capsule (formulary)] 1 cap PO DAILY 11/29/17 [History] Vitamin A 8,000 unit PO DAILY 11/29/17 [History] Vitamin E 1,000 unit PO DAILY 11/29/17 [History] Omeprazole 20 mg PO DAILY 08/16/20 [History] Follow up Appointment(s)/Referral(s): Rahel Ardon MD [STAFF PHYSICIAN] - 6 Weeks Discharge Disposition: HOME SELF-CARE
[2020-08-17 08:35] VITALS: BP 129/85; PULSE 63; TEMP 97
[2020-08-17] MEDS ORDERED: ENOXAPARIN 40 MG/0.4 ML SYRINGE SQ SCH (17:00)
== END 2020-08-17 14:53 | disposition home or self-care (01) | DRG 807 ==
LOC: FBPOP 06:55 → 4FBP 07:18
PROVIDERS: ADMIT Obstetrics & Gynecology; ATTEND Obstetrics & Gynecology
PROC: 00HU33Z Insertion of Infusion Device into Spinal Canal, Percutaneous Approach (ICD-10-PCS; principal; 2020-08-16)
PROC: 10E0XZZ Delivery of Products of Conception, External Approach (ICD-10-PCS; principal; 2020-08-16)
PROC: 3E0R3NZ Introduction of Analgesics, Hypnotics, Sedatives into Spinal Canal, Percutaneous Approach (ICD-10-PCS; principal; 2020-08-16)
PROC: 10907ZC Drainage of Amniotic Fluid, Therapeutic from Products of Conception, Via Natural or Artificial Opening (ICD-10-PCS; principal; 2020-08-16)
DX: O60.14X0 Preterm labor third trimester with preterm delivery third trimester, not applicable or unspecified (principal); Z37.0 Single live birth; O24.429 Gestational diabetes mellitus in childbirth, unspecified control; O99.844 Bariatric surgery status complicating childbirth; Z3A.37 37 weeks gestation of pregnancy; Z79.82 Long term (current) use of aspirin; Z80.9 Family history of malignant neoplasm, unspecified; Z82.49 Family history of ischemic heart disease and other diseases of the circulatory system; Z83.3 Family history of diabetes mellitus; Z86.718 Personal history of other venous thrombosis and embolism; Z87.891 Personal history of nicotine dependence; Z91.040 Latex allergy status
CPT/HCPCS: 59025; 85025; 86850; 86900; 86901; 88307; 99213

== ENCOUNTER → 2021-10-14 | Outpatient (CLI) | payer BC ==
--- NOTE | 2021-10-18 10:14 | MM ---
Reason for exam: screening (asymptomatic). Last mammogram was performed 2 years ago. History: Patient is postmenopausal and had first child at age 48. Family history of breast cancer in mother and breast cancer in maternal grandmother. Took estrogen for 4 months. Took progesterone for 4 months. Taking other hormone. Physical Findings: A clinical breast exam by your physician is recommended on an annual basis and results should be correlated with mammographic findings. MG 3D Screening Mammo W/Cad Bilateral CC and MLO view(s) were taken. Prior study comparison: October 09, 2019, bilateral MG 3d screening mammo w/cad. December 12, 2016, mammogram. The breast tissue is heterogeneously dense. This may lower the sensitivity of mammography. There are benign appearing round calcifications bilaterally. There is no discrete abnormality. ASSESSMENT: Incomplete: need additional imaging evaluation, BI-RAD 0 RECOMMENDATION: Ultrasound of the left breast. (focal area of pain) [facility] will attempt to contact patient to return for ultrasound.
== END | disposition home or self-care (01) ==
LOC: RADMAMWWP 07:55
PROVIDERS: ATTEND Family Medicine
DX: Z12.31 Encounter for screening mammogram for malignant neoplasm of breast (principal); Z78.0 Asymptomatic menopausal state; Z80.3 Family history of malignant neoplasm of breast
CPT/HCPCS: 77063; 77067

== ENCOUNTER → 2021-10-21 | Outpatient (CLI) | payer BC ==
--- NOTE | 2021-10-21 09:03 | USB ---
Reason for exam: additional evaluation requested from abnormal screening. History: Patient is postmenopausal and had first child at age 48. Family history of breast cancer in mother and breast cancer in maternal grandmother. Took estrogen for 4 months. Took progesterone for 4 months. Taking other hormone. Physical Findings: A clinical breast exam by your physician is recommended on an annual basis and results should be correlated with mammographic findings. US Breast Workup Limited LT Left limited breast ultrasound including focal area of concern, retroareolar and axilla demonstrates no cystic or solid lesion seen. Scanned 6-10 o'clock. ASSESSMENT: Negative, BI-RAD 1 RECOMMENDATION: Return to routine screening mammogram schedule for both breasts. Manage on a clinical basis with regard to pain.
== END | disposition home or self-care (01) ==
LOC: RADUSWWP 08:18
PROVIDERS: ATTEND Family Medicine
DX: R92.8 Other abnormal and inconclusive findings on diagnostic imaging of breast (principal); Z78.0 Asymptomatic menopausal state; Z80.3 Family history of malignant neoplasm of breast

== ENCOUNTER 2023-05-05 00:46 | Observation (INO) | payer BC ==
[2023-05-05] MEDS ORDERED: ASPIRIN 81 MG PO STA (01:25)
[2023-05-05] MEDS ORDERED: DILTIAZEM DRIP BOLUS FROM BAG 1 MG SOLN IV ONE (01:25)
[2023-05-05] MEDS ORDERED: SODIUM CHLORIDE 0.9% 1,000 ML IV STA (01:25)
[2023-05-05 01:44] LABS: Anisocytosis Slight; Basophils % (A) 0 %; Eosinophils # (A) 0.1 k/uL (0-0.7); Eosinophils % (A) 2 %; HCT 35.5 % (34.0-46.0); Hypochromasia Marked; Lymphocytes # (A) 2.7 k/uL (1.0-4.8); Lymphocytes % (A) 43 %; MCH 24.3 pg (25.0-35.0); MCV 78.3 fL (80.0-100.0); Mean Platelet Volume 7.6; Microcytosis Slight; Monocytes # (A) 0.4 k/uL (0-1.0); Monocytes % (A) 6 %; Neutrophils # (A) 2.9 k/uL (1.3-7.7); Neutrophils % (A) 46 %; Platelet Count 242 k/uL (150-450); RBC 4.53 m/uL (3.80-5.40); RDW 16.9 % (11.5-15.5); WBC 6.3 k/uL (3.8-10.6)
[2023-05-05 01:58] LABS: Partial Thromboplastin Time 24.1 sec (22.0-30.0); Prothrombin Time 10.9 sec (10.0-12.5)
[2023-05-05 02:10] LABS: ALT 21 U/L (4-34); AST 28 U/L (14-36); African American GFR (CKD) >90 (>60 ml/min/1.73 sqM); Albumin 3.6 g/dL (3.5-5.0); Alkaline Phosphatase 89 U/L (38-126); Anion Gap 8 mmol/L; Blood Urea Nitrogen 8 mg/dL (7-17); Calcium 8.7 mg/dL (8.4-10.2); Carbon Dioxide 23 mmol/L (22-30); Chloride 108 mmol/L (98-107); Glucose 85 mg/dL (74-99); Magnesium 2.1 mg/dL (1.6-2.3); Non-African American GFR(CKD) >90 (>60 ml/min/1.73 sqM); Potassium 4.3 mmol/L (3.5-5.1); Sodium 139 mmol/L (137-145); Total Bilirubin 0.3 mg/dL (0.2-1.3); Total Protein 6.6 g/dL (6.3-8.2)
[2023-05-05] MEDS: DILTIAZEM 125 MG in SODIUM CHLORIDE 0.9% 100 ML IV SCH (02:22)
--- NOTE | 2023-05-05 03:27 | ED ---
General Adult HPI - General Chief complaint: Arrhythmia/Palpitations Stated complaint: Irregular heartbeat Time Seen by Provider: 05/05/23 00:59 Source: patient, RN notes reviewed, old records reviewed Mode of arrival: wheelchair Limitations: no limitations - History of Present Illness Initial comments: Patient is a 52-year-old female who presents emergency Department complaining of palpitations and fast heart rate. States that she awoke from sleep with palpitations and fast heart rate. His no cardiac history. Has a history of prior DVTs 10 years ago. Was recently started on hormonal therapy. Is wondering if these medications are concerning to her symptoms. No history of atrial fibrillation. Denies any shortness breath, chest pain, nausea, vomiting, diaphoresis. Denies any headache, weakness, blurry vision. Denies any urinary complaints. No fevers, chills, cough. Presents for further evaluation. States she feels somewhat weak but primarily is complaining of palpitations at this time. Presents for further evaluation at this time.Endorses chronic lower extremity edema with no acute changes. - Related Data Home Medications Medication Instructions Recorded Confirmed No Known Home Medications 10/19/21 10/20/21 Allergies Allergy/AdvReac Type Severity Reaction Status Date / Time adhesive tape Allergy Rash/Hives Verified 05/05/23 00:49 Review of Systems ROS Statement: Those systems with pertinent positive or pertinent negative responses have been documented in the HPI. Review of Systems: CONST: Denies fever EYES: Denies blurry vision ENT: Denies nasal congestion C/V: Endorses palpitations RESP: Denies shortness of breath GI: Denies abdominal pain : Denies dysuria SKIN: Denies rash. MSK: Denies joint pain. NEURO: Denies headache . ROS Other: All systems not noted in ROS Statement are negative. Past Medical History Past Medical History: Blood Disorder, Deep Vein Thrombosis (DVT) Additional Past Medical History / Comment(s): anemia History of Any Multi-Drug Resistant Organisms: None Reported Past Surgical History: Bariatric Surgery Additional Past Surgical History / Comment(s): metro vein thermal ablasion. abdominoplasty Past Anesthesia/Blood Transfusion Reactions: Postoperative Nausea & Vomiting (PONV) Past Psychological History: No Psychological Hx Reported Smoking Status: Former smoker Past Alcohol Use History: Rare Past Drug Use History: None Reported - Past Family History Mother Family Medical History: Unable to Obtain General Exam - General Exam Comments Initial Comments: General: Appears in no acute distress. HEAD: Normal with no signs of head trauma. EYES: PERRLA, EOMI, conjunctiva normal, no discharge. ENT: Hearing grossly intact, normal oropharynx. RESPIRATORY: Clear breath sounds bilaterally. No wheezes, rales, or rhonchi. C/V: Irregular rate and rhythm. S1 and S2 auscultated, chronic lower extremity symmetrical edema, peripheral pulses 2+ and intact throughout ABD: Abd is soft, nontender, nondistended EXT: Normal range of motion, no obvious deformity SKIN: No rashes or lesions observed on exposed skin. NEURO: Alert and oriented 4. Limitations: no limitations Course Vital Signs 05/05/23 05/05/23 05/05/23 00:50 02:00 02:08 Temperature 98.0 F Pulse Rate 120 H 67 71 Respiratory 18 16 16 Rate Blood Pressure 127/88 118/107 O2 Sat by Pulse 97 98 97 Oximetry 05/05/23 02:45 Temperature 97.9 F Pulse Rate 61 Respiratory 16 Rate Blood Pressure 128/85 O2 Sat by Pulse Oximetry Medical Decision Making - Medical Decision Making Was pt. sent in by a medical professional or institution (, PA, GAS WELDING MACHINE OPERATOR, urgent care, hospital, or assisted...) When possible be specific @ -No Did you speak to anyone other than the patient for history (EMS, parent, family, police, friend...)? What history was obtained from this source @ -No Did you review nursing and triage notes (agree or disagree)? Why? @ -I reviewed and agree with nursing and triage notes Were old charts reviewed (outside hosp., previous admission, EMS record, old EKG, old radiological studies, urgent care reports/EKG's, assisted records)? Report findings @ -Old charts reviewed. Differential Diagnosis (chest pain, altered mental status, abdominal pain women, abdominal pain men, vaginal bleeding, weakness, fever, dyspnea, syncope, headache, dizziness, GI bleed, back pain, seizure, CVA, palpatations, mental health, musculoskeletal)? @ -Differential Palpitations Ventricular arrhythmias, atrial arrhythmias, myocardial infarction, anemia, thyrotoxicosis, electrolyte imbalance, hypokalemia, pulmonary embolism, pulmonary disease, drugs, alcohol, anxiety, stress.... This is not meant to be an all-inclusive list. EKG interpreted by me (3pts min.). @ -As above X-rays interpreted by me (1pt min.). @ -Chest x-ray reveals no obvious acute cardio pulmonary process. CT interpreted by me (1pt min.). @ -None done U/S interpreted by me (1pt. min.). @ -None done What testing was considered but not performed or refused? (CT, X-rays, U/S, labs)? Why? @ -None What meds were considered but not given or refused? Why? @ -Considered starting the patient on Cardizem as well as heparin for atrial fibrillation however patient spontaneously converted to normal sinus rhythm while here in the department prior to medications being administered. Did you discuss the management of the patient with other professionals (professionals i.e. , PA, GAS WELDING MACHINE OPERATOR, lab, RT, psych nurse, social services coordinator, facer operator, teacher, credit risk officer, binder caser)? Give summary @ -Discussed with Dr. jones who accepted the admission Was smoking cessation discussed for >3mins.? @ -No Was critical care preformed (if so, how long)? @ -No Were there social determinants of health that impacted care today? How? (Homelessness, low income, unemployed, alcoholism, drug addiction, transportation, low edu. Level, literacy, decrease access to med. care, care home, rehab)? @ -No Was there de-escalation of care discussed even if they declined (Discuss DNR or withdrawal of care, Hospice)? DNR status @ -No What co-morbidities impacted this encounter? (DM, HTN, Smoking, COPD, CAD, Cancer, CVA, ARF, Chemo, Hep., AIDS, mental health diagnosis, sleep apnea, morbid obesity)? @ -None Was patient admitted / discharged? Hospital course, mention meds given and rout e, prescriptions, significant lab abnormalities, going to OR and other pertinent info. @ -Based on the patient's presentation and physical exam, I'm concerned for new onset A. fib. EKG shows A. fib with RVR. Patient's heart rate is ranging anywhere from 110 bpm to 150 bpm. Hemodynamically stable otherwise. We will obtain cardio pulmonary workup. Patient be given 324 mg of aspirin as well as an IV fluid bolus. She was in agreement with this plan. I did order a Cardizem drip and was about to order a heparin drip on the patient when she spontaneously converted to normal sinus rhythm. I did discuss with her that we will hold off on these medications at this time as long as she remains in normal sinus rhythm and she was in agreement with the plan. Chest x-ray shows no obvious acute cardio pulmonary process. EKG shows no obvious acute findings of ischemia. Patient's labs are remarkable for an undetectable troponin. D-dimer within normal limits. On reevaluation, patient remains in normal sinus rhythm. I did recommend that we admit her to observation for cardiology evaluation she was in agreement with this plan. I spoke with Dr. jones of [facility] who accepted the admission. Hormone levels ordered and are still pending. Cardiology consulted. Undiagnosed new problem with uncertain prognosis? @ -No Drug Therapy requiring intensive monitoring for toxicity (Heparin, Nitro, Insulin, Cardizem)? @ -No Were any procedures done? @ -No Diagnosis/symptom? @ -New-onset atrial fibrillation with RVR, spontaneous resolution. Acute, or Chronic, or Acute on Chronic? @ -Acute Uncomplicated (without systemic symptoms) or Complicated (systemic symptoms)? @ -Complicated Side effects of treatment? @ -No Exacerbation, Progression, or Severe Exacerbation? @ -No Poses a threat to life or bodily function? How? (Chest pain, USA, MS, pneumonia, PE, COPD, DKA, ARF, appy, cholecystitis, CVA, Diverticulitis, Homicidal, Suicidal, threat to staff... and all critical care pts) @ -Possibly yes. - Lab Data Result diagrams: 05/05/23 01:05/05/23 01:29 Lab Results 05/05/23 05/05/23 05/05/23 Range/Units 01:29 01:29 01:29 WBC 6.3 (3.8-10.6) k/uL RBC 4.53 (3.80-5.40) m/uL Hgb 11.0 L (11.4-16.0) gm/dL Hct 35.5 (34.0-46.0) % MCV 78.3 L (80.0-100.0) fL MCH 24.3 L (25.0-35.0) pg MCHC 31.0 (31.0-37.0) g/dL RDW 16.9 H (11.5-15.5) % Plt Count 242 (150-450) k/uL MPV 7.6 Neutrophils % 46 % Lymphocytes % 43 % Monocytes % 6 % Eosinophils % 2 % Basophils % 0 % Neutrophils # 2.9 (1.3-7.7) k/uL Lymphocytes # 2.7 (1.0-4.8) k/uL Monocytes # 0.4 (0-1.0) k/uL Eosinophils # 0.1 (0-0.7) k/uL Basophils # 0.0 (0-0.2) k/uL Hypochromasia Marked Anisocytosis Slight Microcytosis Slight PT 10.9 (10.0-12.5) sec INR 1.0 (<1.2) APTT 24.1 (22.0-30.0) sec D-Dimer 0.33 (<0.60) mg/L FEU Sodium 139 (137-145) mmol/L Potassium 4.3 (3.5-5.1) mmol/L Chloride 108 H (98-107) mmol/L Carbon Dioxide 23 (22-30) mmol/L Anion Gap 8 mmol/L BUN 8 (7-17) mg/dL Creatinine 0.45 L (0.52-1.04) mg/dL Est GFR (CKD-EPI)AfAm >90 (>60 ml/min/1.73 sqM) Est GFR (CKD-EPI)NonAf >90 (>60 ml/min/1.73 sqM) Glucose 85 (74-99) mg/dL Calcium 8.7 (8.4-10.2) mg/dL Magnesium 2.1 (1.6-2.3) mg/dL Total Bilirubin 0.3 (0.2-1.3) mg/dL AST 28 (14-36) U/L ALT 21 (4-34) U/L Alkaline Phosphatase 89 (38-126) U/L Troponin I (0.000-0.034) ng/mL Total Protein 6.6 (6.3-8.2) g/dL Albumin 3.6 (3.5-5.0) g/dL TSH 1.590 (0.465-4.680) mIU/L 05/05/23 Range/Units 01:29 WBC (3.8-10.6) k/uL RBC (3.80-5.40) m/uL Hgb (11.4-16.0) gm/dL Hct (34.0-46.0) % MCV (80.0-100.0) fL MCH (25.0-35.0) pg MCHC (31.0-37.0) g/dL RDW (11.5-15.5) % Plt Count (150-450) k/uL MPV Neutrophils % % Lymphocytes % % Monocytes % % Eosinophils % % Basophils % % Neutrophils # (1.3-7.7) k/uL Lymphocytes # (1.0-4.8) k/uL Monocytes # (0-1.0) k/uL Eosinophils # (0-0.7) k/uL Basophils # (0-0.2) k/uL Hypochromasia Anisocytosis Microcytosis PT (10.0-12.5) sec INR (<1.2) APTT (22.0-30.0) sec D-Dimer (<0.60) mg/L FEU Sodium (137-145) mmol/L Potassium (3.5-5.1) mmol/L Chloride (98-107) mmol/L Carbon Dioxide (22-30) mmol/L Anion Gap mmol/L BUN (7-17) mg/dL Creatinine (0.52-1.04) mg/dL Est GFR (CKD-EPI)AfAm (>60 ml/min/1.73 sqM) Est GFR (CKD-EPI)NonAf (>60 ml/min/1.73 sqM) Glucose (74-99) mg/dL Calcium (8.4-10.2) mg/dL Magnesium (1.6-2.3) mg/dL Total Bilirubin (0.2-1.3) mg/dL AST (14-36) U/L ALT (4-34) U/L Alkaline Phosphatase (38-126) U/L Troponin I <0.012 (0.000-0.034) ng/mL Total Protein (6.3-8.2) g/dL Albumin (3.5-5.0) g/dL TSH (0.465-4.680) mIU/L - EKG Data -: EKG Interpreted by Co EKG Comments: 12-lead Electrocardiogram Interpretation Note EKG was reviewed and interpreted by myself. 12-lead ECG performed at 0106 is interpreted by me as revealing atrial fibrillation with RVR at a rate of 120 beats per minute. Stuart is normal. NV interval is unobtainable. QRS duration is 89 ms, QTc is 386 seconds.. There were no ST or T wave abnormalities to suggest myocardial ischemia or injury. R wave progression across the precordium was satisfactory. By my interpretation this EKG is non-diagnostic for acute ischemia. 12-lead Electrocardiogram Interpretation Note EKG was reviewed and interpreted by myself. 12-lead ECG performed at 0141 is interpreted by me as revealing normal sinus rhythm at a rate of 72 beats per minute. Stuart is normal. NV interval is 179 ms, QRS duration is 101 ms, QTc is 417 ms.. There were no ST or T wave abnormalities to suggest myocardial ischemia or injury. R wave progression across the precordium was satisfactory. By my interpretation this EKG is non-diagnostic for acute ischemia. Disposition Clinical Impression: New onset atrial fibrillation, Atrial fibrillation with RVR Disposition: ADMITTED IP TO THIS HOSP Condition: Stable Time of Disposition: 03:10
[2023-05-05] MEDS ORDERED: NALOXONE 0.4 MG/ML 1 ML VIAL IV PRN (03:29)
[2023-05-05] MEDS ORDERED: ACETAMINOPHEN TAB 325 MG TAB PO PRN (03:34)
[2023-05-05] MEDS: SODIUM CHLORIDE 0.9% 1,000 ML IV SCH ×2 (03:45→19:12)
--- NOTE | 2023-05-05 06:49 | XR ---
EXAM: XR Chest, 2 Views CLINICAL HISTORY: ITS.REASON XR Reason: dysrhythmia TECHNIQUE: Frontal and lateral views of the chest. COMPARISON: No relevant prior studies available. FINDINGS: Lungs: Unremarkable. No consolidation. Pleural space: Unremarkable. No pneumothorax. Heart: Mild enlargement of the cardiac silhouette. Mediastinum: Unremarkable. Bones/joints: Degenerative changes seen within the spine and shoulders. IMPRESSION: No acute cardiopulmonary disease.
[2023-05-05 07:29] LABS: Amorphous Sediment,Urine Occasional /hpf; Appearance,Urine Cloudy (Clear); Bacteria,Urine Many /hpf; Bilirubin,Urine Negative (Negative); Blood,Urine Negative (Negative); Budding Yeast,Urine Rare /hpf; Color,Urine Light Yellow; Glucose,Urine (UA) Negative (Negative); Ketones,Urine Negative (Negative); Leukocyte Esterase,Urine Large (Negative); Mucus,Urine Occasional /hpf; Nitrite,Urine Positive (Negative); Protein,Urine Negative (Negative); RBC,Urine 2 /hpf (0-5); Specific Gravity,Urine 1.012 (1.001-1.035); Urobilinogen,Urine <2.0 mg/dL (<2.0); WBC,Urine 37 /hpf (0-5)
[2023-05-05 07:31] LABS: Amphetamine Screen,Urine Not Detected (NotDetected); Barbiturate Screen,Urine Not Detected (NotDetected); Benzodiazepines Screen,Urine Not Detected (NotDetected); Cocaine Screen,Urine Not Detected (NotDetected); Methadone Screen, Urine Not Detected (NotDetected); Opiate Screen,Urine Not Detected (NotDetected); Oxycodone Screen, Urine Not Detected (NotDetected); Phencyclidine Screen,Urine Not Detected (NotDetected); Tricyclic Antidepressant,Urine Not Detected (NotDetected); Urn Cannabinoid Scrn Not Detected (NotDetected)
[2023-05-05] MEDS: FAMOTIDINE 20 MG/2 ML VIAL IV SCH ×2 (08:24→23:37)
[2023-05-05] MEDS: HEPARIN SODIUM,PORCINE 5,000 UNIT/ML 1 ML VIAL SQ SCH ×2 (08:24→19:10)
--- NOTE | 2023-05-05 09:00 | P.HPIM ---
History of Present Illness This is a pleasant 52 years old female with past medical history of deep venous thrombosis, not on anticoagulation. Her pcp is Dr. Lopez Patient woke up from sleep feeling her heart was fluttering that she wasn't feeling well She checked her heart rate with her device and it was 132 so she decided to come to the hospital She denies having chest pain or dyspnea or coughing. No GI symptoms, no headache weakness or dizziness. But patient thinks she has UTI because her urine looks abnormal to her and just dark and more smelly are stable. She denies smoking alcohol or illicit tracts Last month her PCP Dr. Lopez than her for echocardiogram because of her bradycardia and she supposed to follow up with speaker mounter Dr. Bethea this coming Sunday and then this had been [facility]. She says she has history of DVT 10 years ago and actually it was superficial rather than deep and she's not on anticoagulation Patient is afebrile. Blood pressure is stable. Currently heart rate is 59. CBC is unremarkable except for mild anemia with hemoglobin of 11. INR 1.0. D- dimer is negative at 0.33. BMP liver enzymes troponin are unremarkable and TSH normal at 1.5 Chest x-ray: No acute process. EKG: Normal sinus rhythm at [address]-T changes First EKG showing atrial fibrillation with a rate of 120 In the emergency room patient was given aspirin and Cardizem drip which is stopped now. Also she was started on normal saline at 75 mL/h and she was admitted with cardiology consult Recent echo done on 03/30/2023 showed ejection fraction of 55-60% with moderate left atrial enlargement. Review of Systems Review of systems CONSTITUTIONAL: No fever, no malaise, no fatigue. HEENT: No recent visual problems or hearing problems. Denied any sore throat. CARDIOVASCULAR: No orthopnea, PND, no palpitations, no syncope. PULMONARY: No shortness of breath, no cough, no hemoptysis. GASTROINTESTINAL: No diarrhea, no nausea, no vomiting, no abdominal pain. Nor moactive bowel sounds. NEUROLOGICAL: No headaches, no weakness, no numbness. HEMATOLOGICAL: Denies any bleeding or petechiae. GENITOURINARY: Denies any burning micturition, frequency, or urgency. MUSCULOSKELETAL/RHEUMATOLOGICAL: Denies any joint pain, swelling, or any muscle pain. ENDOCRINE: Denies any polyuria or polydipsia. Past Medical History Past Medical History: Blood Disorder, Deep Vein Thrombosis (DVT) Additional Past Medical History / Comment(s): anemia History of Any Multi-Drug Resistant Organisms: None Reported Past Surgical History: Bariatric Surgery Additional Past Surgical History / Comment(s): metro vein thermal ablasion. abdominoplasty Past Anesthesia/Blood Transfusion Reactions: Postoperative Nausea & Vomiting (PONV) Past Psychological History: No Psychological Hx Reported Smoking Status: Former smoker Past Alcohol Use History: Rare Past Drug Use History: None Reported - Past Family History Mother Family Medical History: Unable to Obtain Medications and Allergies Home Medications Medication Instructions Recorded Confirmed Type No Known Home Medications 10/19/21 10/20/21 History Allergies Allergy/AdvReac Type Severity Reaction Status Date / Time adhesive tape Allergy Rash/Hives Verified 05/05/23 00:49 Physical Exam Vitals: Vital Signs Temp Pulse Resp BP Pulse Ox 05/05/23 06:55 98.2 F 59 L 18 146/99 97 05/05/23 02:45 97.9 F 61 16 128/85 05/05/23 02:08 71 16 97 05/05/23 02:00 67 16 118/107 98 05/05/23 00:50 98.0 F 120 H 18 127/88 97 Intake and Output 05/04/23 05/05/23 05/05/23 22:59 06:59 14:59 Other: Weight 88.904 kg GENERAL: The patient is alert and oriented x3, not in any acute distress. Well developed, well nourished. HEENT: Pupils are round and equally reacting to light. EOMI. No scleral icterus. No conjunctival pallor. Normocephalic, atraumatic. No pharyngeal erythema. No thyromegaly. CARDIOVASCULAR: S1 and S2 present. No murmurs, rubs, or gallops. PULMONARY: Chest is clear to auscultation, no wheezing , no crackles. ABDOMEN: Soft, nontender, nondistended, normoactive bowel sounds. No palpable organomegaly. MUSCULOSKELETAL: No joint swelling or deformity. EXTREMITIES: No cyanosis, clubbing, or pedal edema. NEUROLOGICAL: Gross neurological examination did not reveal any focal deficits. SKIN: No rashes. no petechiae. Results CBC & Chem 7: 05/05/23 01:29 05/05/23 01:29 Labs: Abnormal Lab Results - Last 24 Hours (Table) 05/05/23 05/05/23 Range/Units 01:29 01:29 Hgb 11.0 L (11.4-16.0) gm/dL MCV 78.3 L (80.0-100.0) fL MCH 24.3 L (25.0-35.0) pg RDW 16.9 H (11.5-15.5) % Chloride 108 H (98-107) mmol/L Creatinine 0.45 L (0.52-1.04) mg/dL Assessment and Plan Assessment: New-onset A. fib and RVR, paroxysmal Acute urinary tract infection History of deep venous thrombosis on treatment at home Plan: Telemetry monitoring Cardiology consult Start ceftriaxone follow-up urine culture Continue gentle hydration Labs and medication were reviewed.. Continue same treatment. Continue with symptomatic treatment. Resume home medication. Monitor labs and vitals. DVT and GI prophylaxis. Further recommendations as per clinical course of the patient DVT prophylaxis: Subcutaneous heparin GI Prophylaxis: Pepcid Prognosis is guarded
[2023-05-05] MEDS ORDERED: FLECAINIDE 50 MG TAB PO PRN (12:38)
[2023-05-05] MEDS ORDERED: METOPROLOL TARTRATE 50 MG TAB PO PRN (12:50)
--- NOTE | 2023-05-05 13:36 | P.CRDCN ---
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 She presented to the hospital with the complaints of palpitations and feeling weak for last couple of days. On admission she was noticed to be in atrial fibrillation with rapid ventricular response. She was started on Cardizem drip and she wanted C cardioverted. At the time of evaluation she is in sinus rhyth m. She reports that her symptoms of palpitations and fatigue has resolved since. She is also been complaining of increased urinary frequency and was concern for UTI. She's been treated for UTI with antibiotics. Her labs were essentially within normal limits with normal troponin levels, normal TSH, normal kidney function and hemoglobin levels. Her fasting glucose was 85. Patient denies any history of previous strokes, malignancies, diabetes, hypertension or any heart disease. Patient does report family history of atrial fibrillation in mother. She denies any smoking, decrease or drug use, marijuana use or alcohol use. She denies any excessive caffeinated drink use Her initial EKG showed atrial fibrillation with no significant ST-T wave changes. Repeat ECG showed sinus rhythm with no significant ST-T wave changes diagnostic for ischemia REVIEW OF SYSTEMS 14 point review of system is negative except what is mentioned above in HPI. PHYSICAL EXAMINATION Vital signs reviewed. Head: Normocephalic. Eyes: Sclerae nonicteric. Neck: Brisk carotid upstroke, no jugular venous distention. Lungs: Clear to auscultation. Heart: Regular rate and rhythm, S1-S2, no S3, no murmur or rub. Abdomen: Soft nontender, positive bowel sounds no organomegaly. Extremities: No edema, intact distal pulses. ASSESSMENT Paroxysmal atrial fibrillation. [id number] score of 1 due to female. reported history of diabetes or hypertension. Normal TSH, Resting sinus bradycardia Prior history of DVT 10 years ago with chronic lower extremity swelling due to venous insufficiency. Nonpitting edema PLAN Recent echocardiogram from one month ago shows normal LVEF of 55% with no major valvular abnormality or no significant chamber size abnormality. Due to patient's resting heart rate being low will not start her on sustained arrhythmias block in agents. This started on pill in the pocket strategy with flecainide 50 mg and metoprolol tartrate 50 mg to be taken when patient feels palpitation. If her symptoms doesn't resolve in one hour she can repeat flecainide and metoprolol once. If her symptoms doesn't resolve with this in next 2-3 hours she is advised to come to the ER. During this strategy she is advised to stay in bed and stay hydrated. Monitor blood pressure. Okay to be discharged home. 14 day event monitor to go home Follow-up outpatient with cardiology Past Medical History Past Medical History: Blood Disorder, Deep Vein Thrombosis (DVT) Additional Past Medical History / Comment(s): anemia History of Any Multi-Drug Resistant Organisms: None Reported Past Surgical History: Bariatric Surgery Additional Past Surgical History / Comment(s): metro vein thermal ablasion. abdominoplasty Past Anesthesia/Blood Transfusion Reactions: Postoperative Nausea & Vomiting (PONV) Past Psychological History: No Psychological Hx Reported Smoking Status: Former smoker Past Alcohol Use History: Rare Past Drug Use History: None Reported - Past Family History Mother Family Medical History: Unable to Obtain Medications and Allergies Home Medications Medication Instructions Recorded Confirmed Type Aspirin EC [Ecotrin Low Dose] 162 mg PO DAILY 05/05/23 05/05/23 History Cholecalciferol [Vitamin D3 (125 125 mcg PO DAILY 05/05/23 05/05/23 History Mcg = 5000 Iu)] Cyanocobalamin [Vitamin B-12 1,000 mcg SQ QMONTHLY 05/05/23 05/05/23 History Injection] Dry A&D 900mcg/15mcg 3 tab PO DAILY 05/05/23 05/05/23 History Estrodim 1 tab PO DAILY 05/05/23 05/05/23 History Iron/Vitamin C 36mg/120mg 2 tab PO DAILY 05/05/23 05/05/23 History Krill/Om-3/Dha/Epa/Phospho/Ast 1 cap PO DAILY 05/05/23 05/05/23 History [Krill Oil 500 mg Softgel] L.acidoph,Paracasei, B.lactis 1 cap PO DAILY PRN 05/05/23 05/05/23 History [Probiotic] Multivit/Iron Sulf/Folic Acid 2 tab PO DAILY 05/05/23 05/05/23 History [Multivitamin with Iron] Omeprazole [PriLOSEC] 20 mg PO HS 05/05/23 05/05/23 History Progesterone, Micronized 200 mg PO HS 05/05/23 05/05/23 History [Progesterone] Vitamin K2 100 mcg PO DAILY 05/05/23 05/05/23 History Zinc 15mg Tablet 15 mg PO DAILY 05/05/23 05/05/23 History Allergies Allergy/AdvReac Type Severity Reaction Status Date / Time adhesive tape Allergy Rash/Hives Verified 05/05/23 10:48 Physical Exam Vitals: Vital Signs Temp Pulse Resp BP Pulse Ox 05/05/23 06:55 98.2 F 59 L 18 146/99 97 05/05/23 02:45 97.9 F 61 16 128/85 05/05/23 02:08 71 16 97 05/05/23 02:00 67 16 118/107 98 05/05/23 00:50 98.0 F 120 H 18 127/88 97 Intake and Output 05/04/23 05/05/23 05/05/23 22:59 06:59 14:59 Other: Weight 88.904 kg Results 05/05/23 01:29 05/05/23 01:29 Cardiac Enzymes 05/05/23 05/05/23 05/05/23 Range/Units 01:29 01:29 07:49 AST 28 (14-36) U/L Troponin I <0.012 <0.012 (0.000-0.034) ng/mL 05/05/23 Range/Units 10:32 AST (14-36) U/L Troponin I <0.012 (0.000-0.034) ng/mL Coagulation 05/05/23 Range/Units 01:29 PT 10.9 (10.0-12.5) sec APTT 24.1 (22.0-30.0) sec CBC 05/05/23 Range/Units 01:29 WBC 6.3 (3.8-10.6) k/uL RBC 4.53 (3.80-5.40) m/uL Hgb 11.0 L (11.4-16.0) gm/dL Hct 35.5 (34.0-46.0) % Plt Count 242 (150-450) k/uL Comprehensive Metabolic Panel 05/05/23 Range/Units 01:29 Sodium 139 (137-145) mmol/L Potassium 4.3 (3.5-5.1) mmol/L Chloride 108 H (98-107) mmol/L Carbon Dioxide 23 (22-30) mmol/L BUN 8 (7-17) mg/dL Creatinine 0.45 L (0.52-1.04) mg/dL Glucose 85 (74-99) mg/dL Calcium 8.7 (8.4-10.2) mg/dL AST 28 (14-36) U/L ALT 21 (4-34) U/L Alkaline Phosphatase 89 (38-126) U/L Total Protein 6.6 (6.3-8.2) g/dL Albumin 3.6 (3.5-5.0) g/dL Current Medications Generic Name Dose Route Start Last Admin Trade Name Freq PRN Reason Stop Dose Admin Acetaminophen 650 mg 05/05/23 03:34 Acetaminophen Tab 325 Mg Tab PO Q6HR PRN Mild Pain or Fever > 100.5 Famotidine 20 mg 05/05/23 09:00 05/05/23 08:24 Famotidine 20 Mg/2 Ml Vial IV 20 mg Q12HR ABIEL Administration Flecainide Acetate 50 mg 05/05/23 12:38 Flecainide 50 Mg Tab PO ONCE PRN Cardiac Arrhythmia Heparin Sodium (Porcine) 5,000 unit 05/05/23 08:00 05/05/23 08:24 Heparin Sodium,Porcine 5,000 Unit/Ml 1 Ml Vial SQ 5,000 unit Q8HR ABIEL Administration Diltiazem HCl 125 mg/ Sodium 125 mls @ 5 mls/hr 05/05/23 01:30 05/05/23 02:22 Chloride IV Not Given .Q24H ABIEL 5 MG/HR Sodium Chloride 1,000 mls @ 75 mls/hr 05/05/23 03:45 05/05/23 03:45 Saline 0.9% IV 75 mls/hr .[id number] ABIEL Administration Ceftriaxone Sodium 1 gm/ 50 mls @ 100 mls/hr 05/05/23 09:00 05/05/23 09:25 Sodium Chloride IVPB 100 mls/hr Q24HR ABIEL Administration Protocol Metoprolol Tartrate 50 mg 05/05/23 12:50 Metoprolol Tartrate 50 Mg Tab PO ONCE PRN Cardiac Arrhythmia Naloxone HCl 0.2 mg 05/05/23 03:29 Naloxone 0.4 Mg/Ml 1 Ml Vial IV Q2M PRN Opioid Reversal Intake and Output 05/04/23 05/05/23 05/05/23 22:59 06:59 14:59 Other: Weight 88.904 kg 05/05/23 01:29 05/05/23 01:29
--- NOTE | 2023-05-05 15:38 | US ---
EXAMINATION TYPE: US renals and bladder DATE OF EXAM: 05/05/2023 COMPARISON: NONE CLINICAL INDICATION: Female, 52 years old with history of uti; UTI EXAM MEASUREMENTS: Right Kidney: 10.6 x 4.9 x 5.9 cm Left Kidney: 10.2 x 5.5 x 5.4 cm Right Kidney: dilated renal pelvis , cortical medullary differentiation maintained. No renal calculi . Left Kidney: wnl no evidence for hydronephrosis. Cortical medullary differentiation maintained. No r enal calculi. Bladder: wnl Bilateral Jets seen: no IMPRESSION: Dilated right renal pelvis could represent extrarenal pelves. No evidence for obstructive uropathy.
[2023-05-06] MEDS: HEPARIN SODIUM,PORCINE 5,000 UNIT/ML 1 ML VIAL SQ SCH ×3 (00:30→16:29)
[2023-05-06] MEDS: DILTIAZEM 125 MG in SODIUM CHLORIDE 0.9% 100 ML IV SCH (02:00)
[2023-05-06 07:28] LABS: Anisocytosis Slight; Basophils % (A) 0 %; Eosinophils # (A) 0.1 k/uL (0-0.7); Eosinophils % (A) 1 %; HGB 10.1 gm/dL (11.4-16.0); Hypochromasia Marked; Lymphocytes # (A) 1.7 k/uL (1.0-4.8); Lymphocytes % (A) 44 %; MCH 23.8 pg (25.0-35.0); MCHC 29.5 g/dL (31.0-37.0); MCV 80.5 fL (80.0-100.0); Mean Platelet Volume 6.9; Monocytes # (A) 0.2 k/uL (0-1.0); Monocytes % (A) 5 %; Neutrophils # (A) 1.8 k/uL (1.3-7.7); Neutrophils % (A) 46 %; Platelet Count 213 k/uL (150-450); RBC 4.23 m/uL (3.80-5.40); RDW 16.9 % (11.5-15.5)
[2023-05-06 07:45] LABS: African American GFR (CKD) >90 (>60 ml/min/1.73 sqM); Anion Gap 5 mmol/L; Blood Urea Nitrogen 10 mg/dL (7-17); Calcium 8.6 mg/dL (8.4-10.2); Carbon Dioxide 29 mmol/L (22-30); Chloride 106 mmol/L (98-107); Glucose 78 mg/dL (74-99); Non-African American GFR(CKD) >90 (>60 ml/min/1.73 sqM); Potassium 4.8 mmol/L (3.5-5.1); Sodium 140 mmol/L (137-145)
[2023-05-06] MEDS: FAMOTIDINE 20 MG/2 ML VIAL IV SCH ×2 (08:57→19:57)
[2023-05-06] MEDS: SODIUM CHLORIDE 0.9% 1,000 ML IV SCH ×2 (08:59→22:31)
--- NOTE | 2023-05-06 10:43 | P.PN ---
Subjective Progress Note Date: 05/06/23 Progress note: Patient is doing well from cardiac vessel standpoint. She has not had any recurrence of atrial fibrillation. 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 She presented to the hospital with the complaints of palpitations and feeling weak for last couple of days. On admission she was noticed to be in atrial fibrillation with rapid ventricular response. She was started on Cardizem drip and she wanted C cardioverted. At the time of evaluation she is in sinus rhythm. She reports that her symptoms of palpitations and fatigue has resolved since. She is also been complaining of increased urinary frequency and was concern for UTI. She's been treated for UTI with antibiotics. Her labs were essentially within normal limits with normal troponin levels, normal TSH, normal kidney function and hemoglobin levels. Her fasting glucose was 85. Patient denies any history of previous strokes, malignancies, diabetes, hypertension or any heart disease. Patient does report family history of atrial fibrillation in mother. She denies any smoking, decrease or drug use, marijuana use or alcohol use. She denies any excessive caffeinated drink use Her initial EKG showed atrial fibrillation with no significant ST-T wave changes. Repeat ECG showed sinus rhythm with no significant ST-T wave changes diagnostic for ischemia REVIEW OF SYSTEMS 14 point review of system is negative except what is mentioned above in HPI. PHYSICAL EXAMINATION Vital signs reviewed. Head: Normocephalic. Eyes: Sclerae nonicteric. Neck: Brisk carotid upstroke, no jugular venous distention. Lungs: Clear to auscultation. Heart: Regular rate and rhythm, S1-S2, no S3, no murmur or rub. Abdomen: Soft nontender, positive bowel sounds no organomegaly. Extremities: No edema, intact distal pulses. ASSESSMENT Paroxysmal atrial fibrillation. [id number] score of 1 due to female. reported history of diabetes or hypertension. Normal TSH, Resting sinus bradycardia Prior history of DVT 10 years ago with chronic lower extremity swelling due to venous insufficiency. Nonpitting edema PLAN Recent echocardiogram from one month ago shows normal LVEF of 55% with no major valvular abnormality or no significant chamber size abnormality. Due to patient's resting heart rate being low will not start her on sustained arrhythmias block in agents. This started on pill in the pocket strategy with flecainide 50 mg and metoprolol tartrate 50 mg to be taken when patient feels palpitation. If her symptoms doesn't resolve in one hour she can repeat flecainide and metoprolol once. If her symptoms doesn't resolve with this in next 2-3 hours she is advised to come to the ER. During this strategy she is advised to stay in bed and stay hydrated. Monitor blood pressure. Okay to be discharged home. 14 day event monitor to go home Follow-up outpatient with Dr. Gastelum in next 1-2 weeks Objective - Vital Signs Vital signs: Vital Signs Temp 98.4 F 05/06/23 07:10 Pulse 60 05/06/23 07:10 Resp 17 05/06/23 07:10 BP 136/83 05/06/23 07:10 Pulse Ox 96 05/06/23 07:10 FiO2 Intake & Output 05/05/23 05/06/23 05/06/23 18:59 06:59 18:59 Weight 88.904 kg Other: Voiding Method Toilet - Labs CBC & Chem 7: 05/06/23 06:40 05/06/23 06:40 Labs: Abnormal Lab Results - Last 24 Hours (Table) 05/06/23 05/06/23 Range/Units 06:40 06:40 Hgb 10.1 L (11.4-16.0) gm/dL MCH 23.8 L (25.0-35.0) pg MCHC 29.5 L (31.0-37.0) g/dL RDW 16.9 H (11.5-15.5) % Creatinine 0.48 L (0.52-1.04) mg/dL
--- NOTE | 2023-05-07 01:03 | P.PN ---
Subjective This is a pleasant 52 years old female with past medical history of deep venous thrombosis, not on anticoagulation. Her pcp is Dr. Lopez Patient woke up from sleep feeling her heart was fluttering that she wasn't feeling well She checked her heart rate with her device and it was 132 so she decided to come to the hospital She denies having chest pain or dyspnea or coughing. No GI symptoms, no headache weakness or dizziness. But patient thinks she has UTI because her urine looks abnormal to her and just dark and more smelly are stable. She denies smoking alcohol or illicit tracts Last month her PCP Dr. Lopez than her for echocardiogram because of her bradycardia and she supposed to follow up with partner integration planner Dr. Bethea this coming Sunday and then this had been [facility]. She says she has history of DVT 10 years ago and actually it was superficial rather than deep and she's not on anticoagulation Patient is afebrile. Blood pressure is stable. Currently heart rate is 59. CBC is unremarkable except for mild anemia with hemoglobin of 11. INR 1.0. D- dimer is negative at 0.33. BMP liver enzymes troponin are unremarkable and TSH normal at 1.5 Chest x-ray: No acute process. EKG: Normal sinus rhythm at [address]-T changes First EKG showing atrial fibrillation with a rate of 120 In the emergency room patient was given aspirin and Cardizem drip which is stopped now. Also she was started on normal saline at 75 mL/h and she was admitted with cardiology consult Recent echo done on 03/30/2023 showed ejection fraction of 55-60% with moderate left atrial enlargement. 05/07/2023 Patient presents with A. fib new onset with ejection fraction of 55% evaluated by partner integration planner and cleared her for discharge with as needed metoprolol and flecainide, for cardiac arrhythmia when necessary with recommendation for event monitor 14 days. However he had symptoms on admission, but no flank pain. Urine culture is growing gram-negative bacilli. Patient got to ceftriaxone. Ultrasound showing dilated right renal pelvis. Neurology team was consulted Patient initially was looking to be discharged home today to go home and take care of her kids, neck or arm change her mind and said stent hospital. is at bedside throughout the encounter and all questions were answered to satisfaction. I had a lengthy discussion with the patient and at bedside to explain patient problems and management plans and details and she verbalized understanding and acceptance. Also patient has implanted her bone by her antenna machine operator Dr. Alexis, testosterone level High, estrogen of pending (hormones levels ordered by emergency room physician ) patient was instructed to follow up with her antenna machine operator Dr. Alexis in 1 week after discharge and she agrees. Active Medications Generic Name Dose Route Start Last Admin Trade Name Freq PRN Reason Stop Dose Admin Acetaminophen 650 mg 05/05/23 03:34 05/06/23 19:47 Acetaminophen Tab 325 Mg Tab PO 650 mg Q6HR PRN Administration Mild Pain or Fever > 100.5 Famotidine 20 mg 05/05/23 09:00 05/06/23 19:57 Famotidine 20 Mg/2 Ml Vial IV 20 mg Q12HR ABIEL Administration Flecainide Acetate 50 mg 05/05/23 12:38 Flecainide 50 Mg Tab PO ONCE PRN Cardiac Arrhythmia Heparin Sodium (Porcine) 5,000 unit 05/05/23 08:00 05/06/23 16:29 Heparin Sodium,Porcine 5,000 Unit/Ml 1 Ml Vial SQ Not Given Q8HR ABIEL Sodium Chloride 1,000 mls @ 75 mls/hr 05/05/23 03:45 05/06/23 22:31 Saline 0.9% IV Not Given .[id number] ABIEL Ceftriaxone Sodium 1 gm/ 50 mls @ 100 mls/hr 05/05/23 09:00 05/06/23 08:57 Sodium Chloride IVPB 100 mls/hr Q24HR ABIEL Administration Protocol Metoprolol Tartrate 50 mg 05/05/23 12:50 Metoprolol Tartrate 50 Mg Tab PO ONCE PRN Cardiac Arrhythmia Naloxone HCl 0.2 mg 05/05/23 03:29 Naloxone 0.4 Mg/Ml 1 Ml Vial IV Q2M PRN Opioid Reversal Objective - Vital Signs Vital signs: Vital Signs Temp 97.7 F 05/06/23 12:18 Pulse 65 05/06/23 12:18 Resp 17 05/06/23 12:18 BP 140/91 05/06/23 12:18 Pulse Ox 95 05/06/23 12:18 FiO2 Intake & Output 05/05/23 05/06/23 05/06/23 18:59 06:59 18:59 Weight 88.904 kg Other: Voiding Method Toilet Toilet # Voids 2 - Exam GENERAL: The patient is alert and oriented x3, not in any acute distress. Well developed, well nourished. HEENT: Pupils are round and equally reacting to light. EOMI. No scleral icterus. No conjunctival pallor. Normocephalic, atraumatic. No pharyngeal erythema. No thyromegaly. CARDIOVASCULAR: S1 and S2 present. No murmurs, rubs, or gallops. PULMONARY: Chest is clear to auscultation, no wheezing , no crackles. ABDOMEN: Soft, nontender, nondistended, normoactive bowel sounds. No palpable organomegaly. MUSCULOSKELETAL: No joint swelling or deformity. EXTREMITIES: No cyanosis, clubbing, or pedal edema. NEUROLOGICAL: Gross neurological examination did not reveal any focal deficits. SKIN: No rashes. no petechiae. - Labs CBC & Chem 7: 05/06/23 06:40 05/06/23 06:40 Labs: Abnormal Lab Results - Last 24 Hours (Table) 05/06/23 05/06/23 Range/Units 06:40 06:40 Hgb 10.1 L (11.4-16.0) gm/dL MCH 23.8 L (25.0-35.0) pg MCHC 29.5 L (31.0-37.0) g/dL RDW 16.9 H (11.5-15.5) % Creatinine 0.48 L (0.52-1.04) mg/dL Microbiology - Last 24 Hours (Table) 05/05/23 01:29 Urine Culture - Preliminary Urine,Voided Gram Neg Bacilli Assessment and Plan Assessment: New-onset A. fib and RVR, paroxysmal Acute urinary tract infection secondary to gram-negative bacteria Fullness and dilatation of the right renal pelvis History of deep venous thrombosis on treatment at home Plan: Telemetry monitoring Cardiology consult. The patient for discharge, and placed discharge cardiac medication Start ceftriaxone follow-up urine culture which is growing gram-negative bacilli Continue gentle hydration neurology consult Labs and medication were reviewed.. Continue same treatment. Continue with symptomatic treatment. Resume home medication. Monitor labs and vitals. DVT and GI prophylaxis. Further recommendations as per clinical course of the patient DVT prophylaxis: Subcutaneous heparin GI Prophylaxis: Pepcid Prognosis is guarded
[2023-05-07] MEDS: HEPARIN SODIUM,PORCINE 5,000 UNIT/ML 1 ML VIAL SQ SCH ×3 (01:29→15:30)
[2023-05-07 07:45] VITALS: RESP 18
[2023-05-07] MEDS: FAMOTIDINE 20 MG/2 ML VIAL IV SCH (08:56)
[2023-05-07] MEDS: SODIUM CHLORIDE 0.9% 1,000 ML IV SCH (11:14)
[2023-05-07 13:12] VITALS: BP 146/96; PULSE 66; TEMP 97.5
--- NOTE | 2023-05-17 08:30 | P.DS ---
Providers Date of admission: 05/05/23 03:29 Attending physician: Halle Loving Consults: 05/05/23 03:34 Consult Physician Routine Consulting Provider: [facility] Consult Reason/Comments: new onset afib with rvr Do you want consulting provider notified?: Yes 05/06/23 13:46 Consult Physician Urgent Consulting Provider: Fredrick Frost Reason/Comments: right renal pelvis fullness, uti Do you want consulting provider notified?: Yes Primary care physician: Ladarius Lopez [facility] Course: Date of service for this note is 05/07/2023 Diagnoses: New-onset A. fib and RVR, paroxysmal Acute urinary tract infection secondary to gram-negative bacteria Fullness and dilatation of the right renal pelvis History of deep venous thrombosis on treatment at home Hospital course: This is a pleasant 52 years old female with past medical history of deep venous thrombosis, not on anticoagulation.Her pcp is Dr. Lopez Patient woke up from sleep feeling her heart was fluttering that she wasn't feeling well. She presents with new onset A. fib with RVR with ejection fraction of 55% converting supervisor evaluated the patient. Unit Director had her for discharge with as needed metoprolol and flecainide (cardiac prescription is brought converting supervisor) for cardiac arrhythmia when necessary with recommendation for event monitor 14 days. patient also was diagnosed with acute urinary tract infection secondary to E. coli which was sensitive to antibiotic. Her symptoms of UTI improved upon discharge. Patient is back to her baseline and she wants to go home today and be discharged and follow-up as an outpatient. Ultrasound showing dilated right renal pelvis, and fullness on the right renal pelvis. urologist was consulted. He hasn't seen the patient yet because it's weekend patient does not want to wait for urologist and wants to follow up with him as an outpatient, risks including but not limited to cancer mass stones, congenital abnormality or other abnormality are explained for the patient and she verbalized understanding and acceptance. Also she has implanted hormones by her hull drafter Dr. Alexis, testosterone level High, estrogen of pending (hormones levels ordered by emergency room physician ) patient was instructed to follow up with her hull drafter Dr. Alexis in 1 week after discharge and she agrees. Patient was adamant to go home today. She denies any new complaints. She states that she is fine and she can follow-up as an outpatient. Patient was cleared for discharge by converting supervisor. Problems and management plan were discussed with the patient and he verbalized understanding and acceptance Patient was found stable and can be discharged home in guarded prognosis however he needs follow-up as an outpatient. Patient was instructed to follow up with PCP Dr. Lopez within one week and patient agrees Patient was instructed to follow up with urologist Dr. Malagon in one week and converting supervisor Dr. Lebron in 1 week and she agrees to call and make her own appointment as it is weekend Patient also was instructed to follow up with her hull drafter Dr. Uriostegui in 1-2 weeks to discuss for hormone therapy and she agrees to call and make an appointment Physical exam Gen: patient is a AAOx3, no distress CVS: S1-S2, RRR, no murmur Lungs: B/L CTA, no wheezing Abdomen: soft, no distention, no tenderness, positive bowel sounds Extremity: no leg edema or induration Time spent more than 35 minutes Patient Condition at Discharge: Stable Plan - Discharge Summary Discharge Rx Participant: No New Discharge Prescriptions: New Flecainide [Tambocor] 50 mg PO ONCE PRN 30 Days #30 tab PRN Reason: Cardiac Arrhythmia cefUROXime axetiL [Ceftin] 500 mg PO BID 3 Days #6 tab Metoprolol Tartrate [Lopressor] 50 mg PO ONCE PRN 30 Days #30 tab PRN Reason: Cardiac Arrhythmia Continue Aspirin EC [Ecotrin Low Dose] 162 mg PO DAILY 30 Days #30 tab Discontinued Omeprazole [PriLOSEC] 20 mg PO HS L.acidoph,Paracasei, B.lactis [Probiotic] 1 cap PO DAILY PRN PRN Reason: Gi Upset Krill/Om-3/Dha/Epa/Phospho/Ast [Krill Oil 500 mg Softgel] 1 cap PO DAILY Multivit/Iron Sulf/Folic Acid [Multivitamin with Iron] 2 tab PO DAILY Cyanocobalamin [Vitamin B-12 Injection] 1,000 mcg SQ QMONTHLY Cholecalciferol [Vitamin D3 (125 Mcg = 5000 Iu)] 125 mcg PO DAILY Iron/Vitamin C 36mg/120mg 2 tab PO DAILY Dry A&D 900mcg/15mcg 3 tab PO DAILY Zinc 15mg Tablet 15 mg PO DAILY Vitamin K2 100 mcg PO DAILY Progesterone, Micronized [Progesterone] 200 mg PO HS Estrodim 1 tab PO DAILY Discharge Medication List Aspirin EC [Ecotrin Low Dose] 162 mg PO DAILY 30 Days #30 tab 05/06/23 [Rx] Flecainide [Tambocor] 50 mg PO ONCE PRN 30 Days #30 tab 05/06/23 [Rx] Metoprolol Tartrate [Lopressor] 50 mg PO ONCE PRN 30 Days #30 tab 05/06/23 [Rx] cefUROXime axetiL [Ceftin] 500 mg PO BID 3 Days #6 tab 05/07/23 [Rx] Follow up Appointment(s)/Referral(s): Escobar Gastelum MD [Medical Doctor] - 1 Week (converting supervisor ) Ladarius Lopez DO [Primary Care Provider] - 1-2 days Kassy Uriostegui DO [Doctor of Osteopathic Medicine] - 1 Week Fredrick Frost MD [STAFF PHYSICIAN] - 1 Week (urologist ) Activity/Diet/Wound Care/Special Instructions: heart healthy diet activity is as tolerated Discharge Disposition: HOME SELF-CARE
--- NOTE | 2023-05-25 00:05 | EM ---
EVENT MONITOR The patient was monitored between the and April. The rhythm strip revealed a sinus mechanism. Single PACs were noted. No pauses were noted. No atrial fibrillation was documented. There was 1 ventricular triplet, asymptomatic. Symptoms of irregular heartbeat correlated with sinus mechanism. YOSHI / SOCO: [id number] /
== END 2023-05-07 20:55 | disposition home or self-care (01) ==
LOC: EC 00:46 → INTOOBSV 03:29 → 3SCARD 03:29 → OBSVTOIN 03:29 → 3SCARD 14:11 → 5NMEDONC 18:56 → UNDODISIN 05-07 20:55
PROVIDERS: ADMIT Hospitalist; ATTEND Hospitalist
DX: I48.0 Paroxysmal atrial fibrillation (principal); N39.0 Urinary tract infection, site not specified; N28.89 Other specified disorders of kidney and ureter; R00.1 Bradycardia, unspecified; I87.2 Venous insufficiency (chronic) (peripheral); Z86.718 Personal history of other venous thrombosis and embolism; Z87.891 Personal history of nicotine dependence; Z79.82 Long term (current) use of aspirin; Z79.899 Other long term (current) drug therapy
CPT/HCPCS: 96376 ×3; 96361 ×3; 96366 ×2; 96372 ×2; 96365; 96375; 99285; 36415; 93005; 93270; 85379; 80053; 80048; 82672; 83735; 84443; 84484; 85025 ×2; 85610; 85730; 81001; 84403; 84144; 80306; 87086; 87077; 87186; 71046; 76770; G0378 ×3; J1644 ×2; J0696 ×3; J3490 ×3

== ENCOUNTER → 2023-05-31 | Outpatient (CLI) | payer BC ==
--- NOTE | 2023-05-31 08:19 | MM ---
Reason for Exam: Screening (asymptomatic). Last mammogram was performed 1 year(s) and 8 month(s) ago. Patient History: Menarche at age 12. First Full-Term at age 48. Late child-bearing (after 30). Postmenopausal. Patient has history of breast feeding. Currently using Estrogen, starting at age 50. Currently using Progesterone, starting at age 50. Maternal grandmother had breast cancer. Mother had breast cancer. Risk Values: Macy 5 year model risk: 2.1%. NCI Lifetime model risk: 16.7%. Prior Study Comparison: 10/14/2014 Screening Mammogram, Unknown. 12/12/2016 Screening Mammogram, Unknown. 10/09/2019 Bilateral Screening Mammogram, [facility]. 10/14/2021 Bilateral Screening Mammogram, [facility]. Tissue Density: There are scattered fibroglandular densities. Findings: Analyzed By CAD. There is no suspicious group of microcalcifications or new suspicious mass. Benign-appearing calcifications bilaterally. Overall Assessment: Benign, BI-RAD 2 Management: Screening Mammogram of both breasts in [address] [facility] will attempt to contact patient to return for supplemental views and ultrasound if indicated. Patient should continue monthly self-breast exams. A clinical breast exam by your physician is recommended on an annual basis. This exam should not preclude additional follow-up of suspicious palpable abnormalities. Note on Macy scores and lifetime risk: 1. A Macy score greater than 3% is considered moderate risk. If this is the case, consider specialist referral to assess eligibility for a risk reducing agent. 2. If overall lifetime risk for the development of breast cancer is 20% or higher, the patient may qualify for future screening with alternating mammogram and breast MRI. Electronically signed and approved by: Luisito Koo DO
== END | disposition home or self-care (01) ==
LOC: RADMAMWWP 07:04
PROVIDERS: ATTEND Obstetrics & Gynecology Obstetrics
DX: Z12.31 Encounter for screening mammogram for malignant neoplasm of breast (principal); Z78.0 Asymptomatic menopausal state; Z80.3 Family history of malignant neoplasm of breast
CPT/HCPCS: 77063; 77067

== ENCOUNTER → 2023-07-17 | Outpatient (CLI) | payer BC ==
[2023-07-17 11:15] LABS: African American GFR (CKD) >90 (>60 ml/min/1.73 sqM); Blood Urea Nitrogen 15 mg/dL (7-17); Non-African American GFR(CKD) >90 (>60 ml/min/1.73 sqM)
--- NOTE | 2023-07-17 13:40 | CT ---
EXAMINATION TYPE: CT abdomen pelvis wo/w con DATE OF EXAM: 07/17/2023 COMPARISON: None HISTORY: hydronephrosis CT DLP: 2225.5 mGycm Automated exposure control for dose reduction was used. TECHNIQUE: Helical acquisition of images was performed from the lung bases through the pelvis. CONTRAST: Performed with Oral Contrast and with IV Contrast, patient injected with 100 mL of Isovue 300. FINDINGS: The visualized lung bases are clear. There are surgical absence of gallbladder. There is no focal mass or organomegaly involving the liver, pancreas, spleen or right adrenal gland. There is a 2.7 cm mass of the left adrenal gland. Density is consistent with a cyst. There is no renal calcification, solid renal mass or process. There is no retroperitoneal adenopathy or hemorrhage in the caliber the abdominal aorta is normal. The bowel loops normal in caliber and there is no dilatation or obstruction. No inflammatory changes are identified in the bowel wall or mesentery. There are postsurgical changes involving the stomach and GE junction. There is no pelvic mass, free fluid, abscess or adenopathy. The osseous structures are intact IMPRESSION: 1. No renal calcification, solid renal mass or hydronephrosis. 2. Postsurgical changes of the stomach and GE junction. 3. Left adrenal cyst. 4. No acute changes within the abdomen or pelvis.
== END | disposition home or self-care (01) ==
LOC: RADCTMAIN 10:37
PROVIDERS: ATTEND Urology
DX: N13.30 Unspecified hydronephrosis (principal); E27.8 Other specified disorders of adrenal gland; Z48.815 Encounter for surgical aftercare following surgery on the digestive system
CPT/HCPCS: 82565; 84520; 74178; 36415; Q9967

== ENCOUNTER → 2023-12-29 | Outpatient (CLI) | payer BC ==
[2023-12-29 23:32] LABS: Basophils # (A) 0.02 X 10*3/uL (0.00-0.10); Basophils % (A) 0.4 %; Eosinophils # (A) 0.04 X 10*3/uL (0.04-0.35); Eosinophils % (A) 0.8 %; HCT 36.1 % (37.2-46.3); HGB 10.3 g/dL (12.0-15.0); Lymphocytes # (A) 1.67 X 10*3/uL (0.90-5.00); MCH 24.6 pg (27.0-32.0); MCHC 28.5 g/dL (32.0-37.0); MCV 86.4 FL (80.0-97.0); Monocytes # (A) 0.29 X 10*3/uL (0.20-1.00); Monocytes % (A) 6.1 %; NRBC Per 100 WBC 0 X 10*3/uL (0.00-0.01); Neutrophils # (A) 2.74 X 10*3/uL (1.80-7.70); Neutrophils % (A) 57.5 %; Platelet Count 238 X 10*3/uL (140-440); RBC 4.18 X 10*6/uL (4.10-5.20); RDW 17.2 % (11.5-14.5); WBC 4.77 X 10*3/uL (4.50-10.00)
[2023-12-30 06:20] LABS: Potassium 4.6 mmol/L (3.5-5.5)
== END | disposition home or self-care (01) ==
LOC: LABWHC1 09:03
PROVIDERS: ATTEND Family Medicine
DX: E55.9 Vitamin D deficiency, unspecified (principal); D50.9 Iron deficiency anemia, unspecified; R89.9 Unspecified abnormal finding in specimens from other organs, systems and tissues
CPT/HCPCS: 36415; 82088; 82306; 83735; 83835; 84132; 84244; 85025

== ENCOUNTER → 2024-05-01 | Outpatient (CLI) | payer BC ==
[2024-05-01 19:34] LABS: Estradiol <20.0 pg/mL
[2024-05-01 19:36] LABS: Follicle Stimulating Hormone 36.7 mIU/mL
== END | disposition home or self-care (01) ==
LOC: LABWHC1 15:51
PROVIDERS: ATTEND Obstetrics & Gynecology Obstetrics
CPT/HCPCS: 36415; 82670; 83001; 84403

== ENCOUNTER → 2024-12-02 | Outpatient (CLI) | payer BC ==
--- NOTE | 2024-12-02 08:42 | MM ---
Reason for Exam: Screening (asymptomatic). Last mammogram was performed 1 year(s) and 6 month(s) ago. Patient History: Menarche at age 12. First Full-Term at age 48. Late child-bearing (after 30). Postmenopausal. Patient has history of breast feeding. Currently using Estrogen, starting at age 50. Currently using Progesterone, starting at age 50. Maternal grandmother had breast cancer. Mother had breast cancer. Risk Values: Macy 5 year model risk: 2.3%. NCI Lifetime model risk: 16.2%. Prior Study Comparison: 10/09/2019 Bilateral Screening Mammogram, [facility]. 10/14/2021 Bilateral Screening Mammogram, [facility]. 05/31/2023 Bilateral MG 3D screening mammo w/cad, [facility]. Tissue Density: There are scattered areas of fibroglandular density. Findings: Analyzed By CAD. There are tiny benign-appearing round calcifications bilaterally redemonstrated. Benign-appearing bilateral axillary lymph nodes are again seen. There is no suspicious group of microcalcifications or new suspicious mass in either breast. Overall Assessment: Benign, BI-RAD 2 Management: Screening Mammogram of both breasts in 1 year. . Patient should continue monthly self-breast exams. A clinical breast exam by your physician is recommended on an annual basis. This exam should not preclude additional follow-up of suspicious palpable abnormalities. Note on Macy scores and lifetime risk: 1. A Macy score greater than 3% is considered moderate risk. If this is the case, consider specialist referral to assess eligibility for a risk reducing agent. 2. If overall lifetime risk for the development of breast cancer is 20% or higher, the patient may qualify for future screening with alternating mammogram and breast MRI. [facility], , 12/02/2024 8:40 AM. Electronically signed and approved by: Elijah Anne M.D.
== END | disposition home or self-care (01) ==
LOC: RADMAMWWP 06:46
PROVIDERS: ATTEND Obstetrics & Gynecology Obstetrics
DX: Z12.31 Encounter for screening mammogram for malignant neoplasm of breast (principal); R92.323 Mammographic fibroglandular density, bilateral breasts; Z78.0 Asymptomatic menopausal state; Z80.3 Family history of malignant neoplasm of breast
CPT/HCPCS: 77063; 77067

== ENCOUNTER 2024-12-08 09:27 | Emergency (ER) | payer BC ==
--- NOTE | 2024-12-08 10:06 | ED ---
General Adult HPI - General Chief complaint: Urogenital Stated complaint: UTI Time Seen by Provider: 12/08/24 09:46 Source: patient Mode of arrival: ambulatory Limitations: no limitations - History of Present Illness Initial comments: Dictation was produced using [employer] dictation software. please excuse any grammatical, word or spelling errors. Chief Complaint: 54-year-old female UTI History of Present Illness: Patient is a 54-year-old well-appearing female presents to the emergency department for UTI she went to urgent care had urine studies performed showing UTI. Urgent care provider recommended patient come to the ER for concerns of sepsis. Patient has any fevers. She does report some chills The ROS documented in this emergency department record has been reviewed and confirmed by me. Those systems with pertinent positive or negative responses have been documented in the HPI. All other systems are other negative and/or noncontributory. - Related Data Previous Rx's Medication Instructions Recorded Aspirin EC [Ecotrin Low Dose] 162 mg PO DAILY 30 Days #30 tab 05/06/23 Flecainide [Tambocor] 50 mg PO ONCE PRN 30 Days #30 tab 05/06/23 Metoprolol Tartrate [Lopressor] 50 mg PO ONCE PRN 30 Days #30 tab 05/06/23 cefuroxime axetiL [Ceftin] 500 mg PO BID 3 Days #6 tab 05/07/23 Cephalexin [Keflex] 250 mg PO Q6HR 5 Days #20 cap 12/08/24 Allergies Allergy/AdvReac Type Severity Reaction Status Date / Time adhesive tape Allergy Rash/Hives Verified 12/08/24 09:45 Review of Systems ROS Statement: Those systems with pertinent positive or pertinent negative responses have been documented in the HPI. ROS Other: All systems not noted in ROS Statement are negative. Past Medical History Past Medical History: Blood Disorder, Deep Vein Thrombosis (DVT) Additional Past Medical History / Comment(s): anemia History of Any Multi-Drug Resistant Organisms: None Reported Past Surgical History: Bariatric Surgery Additional Past Surgical History / Comment(s): metro vein thermal ablasion. abdominoplasty Past Anesthesia/Blood Transfusion Reactions: Postoperative Nausea & Vomiting (PONV) Past Psychological History: No Psychological Hx Reported Smoking Status: Never smoker Past Alcohol Use History: Rare Past Drug Use History: None Reported - Past Family History Mother Family Medical History: Unable to Obtain General Exam - General Exam Comments Initial Comments: PHYSICAL EXAM: General Impression: Alert and oriented x3, not in acute distress HEENT: Normocephalic atraumatic, extra-ocular movements intact, pupils equal and reactive to light bilaterally, mucous membranes moist. Cardiovascular: Heart regular rate and rhythm Chest: Able to complete full sentences, no retractions, no tachypnea Abdomen: abdomen soft, non-tender, non-distended, no organomegaly Musculoskeletal: Pulses present and equal in all extremities, no peripheral edema Motor: no focal deficits noted Neurological: CN II-XII grossly intact, no focal motor or sensory deficits noted Skin: Intact with no visualized rashes Psych: Normal affect and mood Limitations: no limitations Course Vital Signs 12/08/24 12/08/24 09:42 10:24 Temperature 97.8 F 98.5 F Pulse Rate 68 51 L Respiratory 18 20 Rate Blood Pressure 133/83 136/78 O2 Sat by Pulse 98 96 Oximetry Medical Decision Making - Medical Decision Making Was pt. sent in by a medical professional or institution (, PA, [employer], urgent care, hospital, or fci...) When possible be specific @ -No Did you speak to anyone other than the patient for history (EMS, parent, family, police, friend...)? What history was obtained from this source @ -No Did you review nursing and triage notes (agree or disagree)? Why? @ -I reviewed and agree with nursing and triage notes Were old charts reviewed (outside hosp., previous admission, EMS record, old EKG, old radiological studies, urgent care reports/EKG's, fci records)? Report findings @ -No old charts were reviewed Differential Diagnosis (chest pain, altered mental status, abdominal pain women, abdominal pain men, vaginal bleeding, musculoskeletal, weakness, fever, dyspnea, syncope, headache, dizziness, GI bleed, back pain, seizure, CVA, palpatations, mental health)? @ -UTI, pyelonephritis, cystitis EKG interpreted by me (3pts min.). @ -None done X-rays interpreted by me (1pt min.). @ -None done CT interpreted by me (1pt min.). @ -None done U/S interpreted by me (1pt. min.). @ -None done What testing was considered but not performed or refused? (CT, X-rays, U/S, labs)? Why? @ -None What meds were considered but not given or refused? Why? @ -None Was smoking cessation discussed for >3mins.? @ -No Were there social determinants of health that impacted care today? How? (Homelessness, low income, unemployed, alcoholism, drug addiction, transportation, low edu. Level, literacy, decrease access to med. care, prison, rehab)? @ -No Was there de-escalation of care discussed even if they declined (Discuss DNR or withdrawal of care, Hospice)? DNR status @ -No What co-morbidities impacted this encounter? (DM, HTN, Smoking, COPD, CAD, Cancer, CVA, ARF, Chemo, Hep., AIDS, mental health diagnosis, sleep apnea, mor bid obesity)? @ -None Was patient admitted / discharged? Hospital course, mention meds given and ro jose, prescriptions, significant lab abnormalities, going to OR and other pertinent info. @ -54 female with UTI. Vital signs stable. Patient well-appearing at the bedside. Microbiology results reviewed. Patient has had history of E. coli UTI now resistance. Patient does according to recent microbiology results show sensitivity cephalosporins. Patient given ceftriaxone and prescription for Ke flex. Patient discharged Did you discuss the management of the patient with other professionals (pr ofessionals i.e. , PA, [employer], lab, RT, psych nurse, social studies department chair, glue machine operator, teacher, supply requirements officer, case specialist)? Give summary @ -No Was critical care preformed (if so, how long)? @ -No Undiagnosed new problem with uncertain prognosis? @ -No Drug Therapy requiring intensive monitoring for toxicity (Heparin, Nitro, Insulin, Cardizem)? @ -No Were any procedures done? @ -No Diagnosis/symptom? Acute, or Chronic, or Acute on Chronic? Uncomplicated (without systemic symptoms) or Complicated (systemic symptoms)? @ -UTI Side effects of treatment? @ -No Exacerbation, Progression, or Severe Exacerbation? @ -No Poses a threat to life or bodily function? How? (Chest pain, USA, NC, pneumonia, PE, COPD, DKA, ARF, appy, cholecystitis, CVA, Diverticulitis, Homicidal, Suicidal, threat to staff... and all critical care pts) @ -yes - Lab Data Result diagrams: 12/08/24 10:20 12/08/24 10:20 Lab Results 12/08/24 12/08/24 12/08/24 Range/Units 10:20 10:20 10:20 WBC 6.87 (4.50-10.00) 10*3/uL RBC 4.48 (4.10-5.20) 10*6/uL Hgb 10.7 L (12.0-15.0) g/dL Hct 35.8 L (37.2-46.3) % MCV 79.9 L (80.0-97.0) fL MCH 23.9 L (27.0-32.0) pg MCHC 29.9 L (32.0-37.0) g/dL Plt Count 212 (140-440) 10*3/uL MPV 9.6 (9.5-12.2) fL Immature Gran % (Auto) 0.3 % Neutrophils % 72.1 % Lymphocytes % 14.4 % Monocytes % 12.8 % Eosinophils % 0.1 % Basophils % 0.3 % Immature Gran # 0.02 (0.00-0.04) 10*3/uL Neutrophils # 4.95 (1.80-7.70) 10*3/uL Lymphocytes # 0.99 (0.90-5.00) 10*3/uL Monocytes # 0.88 (0.20-1.00) 10*3/uL Eosinophils # 0.01 L (0.04-0.35) 10*3/uL Basophils # 0.02 (0.00-0.10) 10*3/uL Sodium 136 L (137-145) mmol/L Potassium 4.1 (3.5-5.1) mmol/L Chloride 102 (98-107) mmol/L Carbon Dioxide 26 (22-30) mmol/L Anion Gap 8 mmol/L BUN 8 (7-17) mg/dL Creatinine 0.57 (0.52-1.04) mg/dL Est GFR (CKD-EPI)AfAm >90 (>60 ml/min/1.73 sqM) Est GFR (CKD-EPI)NonAf >90 (>60 ml/min/1.73 sqM) Glucose 89 (74-99) mg/dL Plasma Lactic Acid Andrey (0.7-2.0) mmol/L Calcium 8.6 (8.4-10.2) mg/dL Total Bilirubin 0.8 (0.2-1.3) mg/dL AST 26 (14-36) U/L ALT 24 (4-34) U/L Alkaline Phosphatase 90 (38-126) U/L Total Protein 6.5 (6.3-8.2) g/dL Albumin 3.4 L (3.5-5.0) g/dL Urine Color Yellow Urine Appearance Cloudy H (Clear) Urine pH 6.0 (5.0-8.0) Ur Specific [place] 1.014 (1.001-1.035) Urine Protein Trace H (Negative) Urine Glucose (UA) Negative (Negative) Urine Ketones Negative (Negative) Urine Blood Small H (Negative) Urine Nitrite Positive H (Negative) Urine Bilirubin Negative (Negative) Urine Urobilinogen <2.0 (<2.0) mg/dL Ur Leukocyte Esterase Large H (Negative) Urine RBC 5 (0-5) /hpf Urine WBC >182 H (0-5) /hpf Urine Bacteria Rare H (None) /hpf Urine Mucus Occasional H (None) /hpf 12/08/24 Range/Units 10:20 WBC (4.50-10.00) 10*3/uL RBC (4.10-5.20) 10*6/uL Hgb (12.0-15.0) g/dL Hct (37.2-46.3) % MCV (80.0-97.0) fL MCH (27.0-32.0) pg MCHC (32.0-37.0) g/dL Plt Count (140-440) 10*3/uL MPV (9.5-12.2) fL Immature Gran % (Auto) % Neutrophils % % Lymphocytes % % Monocytes % % Eosinophils % % Basophils % % Immature Gran # (0.00-0.04) 10*3/uL Neutrophils # (1.80-7.70) 10*3/uL Lymphocytes # (0.90-5.00) 10*3/uL Monocytes # (0.20-1.00) 10*3/uL Eosinophils # (0.04-0.35) 10*3/uL Basophils # (0.00-0.10) 10*3/uL Sodium (137-145) mmol/L Potassium (3.5-5.1) mmol/L Chloride (98-107) mmol/L Carbon Dioxide (22-30) mmol/L Anion Gap mmol/L BUN (7-17) mg/dL Creatinine (0.52-1.04) mg/dL Est GFR (CKD-EPI)AfAm (>60 ml/min/1.73 sqM) Est GFR (CKD-EPI)NonAf (>60 ml/min/1.73 sqM) Glucose (74-99) mg/dL Plasma Lactic Acid Andrey 0.6 L (0.7-2.0) mmol/L Calcium (8.4-10.2) mg/dL Total Bilirubin (0.2-1.3) mg/dL AST (14-36) U/L ALT (4-34) U/L Alkaline Phosphatase (38-126) U/L Total Protein (6.3-8.2) g/dL Albumin (3.5-5.0) g/dL Urine Color Urine Appearance (Clear) Urine pH (5.0-8.0) Ur Specific [place] (1.001-1.035) Urine Protein (Negative) Urine Glucose (UA) (Negative) Urine Ketones (Negative) Urine Blood (Negative) Urine Nitrite (Negative) Urine Bilirubin (Negative) Urine Urobilinogen (<2.0) mg/dL Ur Leukocyte Esterase (Negative) Urine RBC (0-5) /hpf Urine WBC (0-5) /hpf Urine Bacteria (None) /hpf Urine Mucus (None) /hpf Disposition Clinical Impression: UTI (urinary tract infection) Disposition: HOME SELF-CARE Condition: Fair Instructions (If sedation given, give patient instructions): Urinary Tract Infection in Women (ED) Prescriptions: Cephalexin [Keflex] 250 mg PO Q6HR 5 Days #20 cap Is patient prescribed a controlled substance at d/c from ED?: No Referrals: Ladarius Lopez DO [Primary Care Provider] - 1-2 days Time of Disposition: 11:06
[2024-12-08 10:26] VITALS: RESP 20
[2024-12-08 10:28] LABS: Basophils # (A) 0.02 10*3/uL (0.00-0.10); Basophils % (A) 0.3 %; Eosinophils # (A) 0.01 10*3/uL (0.04-0.35); Eosinophils % (A) 0.1 %; HCT 35.8 % (37.2-46.3); HGB 10.7 g/dL (12.0-15.0); Lymphocytes # (A) 0.99 10*3/uL (0.90-5.00); Lymphocytes % (A) 14.4 %; MCH 23.9 pg (27.0-32.0); MCHC 29.9 g/dL (32.0-37.0); MCV 79.9 fL (80.0-97.0); Mean Platelet Volume 9.6 fL (9.5-12.2); Monocytes # (A) 0.88 10*3/uL (0.20-1.00); Monocytes % (A) 12.8 %; Neutrophils # (A) 4.95 10*3/uL (1.80-7.70); Neutrophils % (A) 72.1 %; Platelet Count 212 10*3/uL (140-440); RBC 4.48 10*6/uL (4.10-5.20); RDW 17.3 % (11.5-14.5); WBC 6.87 10*3/uL (4.50-10.00)
[2024-12-08 10:37] LABS: Appearance,Urine Cloudy (Clear); Bacteria,Urine Rare /hpf; Bilirubin,Urine Negative (Negative); Blood,Urine Small (Negative); Color,Urine Yellow; Glucose,Urine (UA) Negative (Negative); Ketones,Urine Negative (Negative); Leukocyte Esterase,Urine Large (Negative); Mucus,Urine Occasional /hpf; Nitrite,Urine Positive (Negative); Protein,Urine Trace (Negative); RBC,Urine 5 /hpf (0-5); Specific Gravity,Urine 1.014 (1.001-1.035); Urobilinogen,Urine <2.0 mg/dL (<2.0); WBC,Urine >182 /hpf (0-5)
[2024-12-08 10:39] LABS: ALT 24 U/L (4-34); AST 26 U/L (14-36); African American GFR (CKD) >90 (>60 ml/min/1.73 sqM); Albumin 3.4 g/dL (3.5-5.0); Alkaline Phosphatase 90 U/L (38-126); Anion Gap 8 mmol/L; Blood Urea Nitrogen 8 mg/dL (7-17); Calcium 8.6 mg/dL (8.4-10.2); Carbon Dioxide 26 mmol/L (22-30); Chloride 102 mmol/L (98-107); Glucose 89 mg/dL (74-99); Non-African American GFR(CKD) >90 (>60 ml/min/1.73 sqM); Potassium 4.1 mmol/L (3.5-5.1); Sodium 136 mmol/L (137-145); Total Bilirubin 0.8 mg/dL (0.2-1.3); Total Protein 6.5 g/dL (6.3-8.2)
[2024-12-08] MEDS: cefTRIAXone IN SWFI 1,000 MG/10 ML SYRINGE IVP STA (11:39)
[2024-12-08 11:49] VITALS: BP 102/71; PULSE 58; TEMP 98.1
== END 2024-12-08 11:49 | disposition home or self-care (01) ==
LOC: EC 09:27
DX: N39.0 Urinary tract infection, site not specified (principal); Z91.048 Other nonmedicinal substance allergy status
CPT/HCPCS: 36415; 80053; 83605; 85025; 81001; 99283; 96374; J0696